=== PATIENT | male | born 1975 | race Caucasian/White ===

== ENCOUNTER → 2016-06-06 | Outpatient (REF) | payer MEDICARE, MEDICAID ==
[~2016-06-06] MED LIST: AMOX500C PO; CALC250T PO; FOLI1TAB2 PO; INSUH10VL SC; INSULANT SC; LEXA1TAB2 PO; LISI-542 PO; METO100T PO; MYFO360T PO; NEXI40CA PO; PRED5TA PO; TACR0.5C3 PO; VITA10002 PO; VITA500046 PO; VITMTA PO; [UNRECOGNIZED DRUG - CODE] PO
[2016-06-06 14:05] LABS: ALBUMIN 3.8 GM/DL (3.2-5.2); ALBUMIN/GLOBULIN RATIO 1.46 (1.00-1.93); BILIRUBIN,DIRECT 0.2 MG/DL (0.0-0.2); BILIRUBIN,TOTAL 0.8 MG/DL (0.2-1.0); TOTAL PROTEIN 6.4 GM/DL (6.4-8.2)
== END ==
LOC: M LAB REF 13:22
PROVIDERS: ATTEND Internal Medicine Nephrology
DX: Z94.0 Kidney transplant status (principal)

== ENCOUNTER → 2016-11-22 | Outpatient (CLI) | payer MEDICARE, MEDICAID ==
[~2016-11-22] MED LIST changes: -FOLI1TAB2 PO; +FOLI1TAB4 PO; -METO100T PO; +METO100T5 PO
[2016-11-22 12:42] LABS: BASO % 0.6 % (0.0-1.0); EOS # 0.2 K/mm3 (0.0-0.50); EOS % 2.9 % (0.0-3.0); LARGE UNSTAINED CELL # 0.2 K/mm3 (0.0-0.4); LARGE UNSTAINED CELL % 2.8 % (0.0-4.0); LYMPH # 1.7 K/mm3 (1.5-4.5); LYMPH % 27.7 % (24.0-44.0); MEAN CORPUSCULAR HEMOGLOBIN 32.7 pg (27.0-33.0); MEAN CORPUSCULAR HGB CONC 35.9 g/dl (32.0-36.5); MEAN CORPUSCULAR VOLUME 91.1 fl (80.0-96.0); MONO # 0.4 K/mm3 (0.0-0.8); MONO % 6.3 % (0.0-5.0); NEUTROPHILS # 3.6 K/mm3 (1.8-7.7); NEUTROPHILS % 59.7 % (36.0-66.0); PLATELET COUNT, AUTOMATED 135 k/mm3 (150-450); RED CELL DISTRIBUTION WIDTH 14.6 % (11.5-14.5)
[2016-11-22 13:27] LABS: ALBUMIN 4.1 GM/DL (3.2-5.2); ALBUMIN/GLOBULIN RATIO 1.52 (1.00-1.93); ALKALINE PHOSPHATASE 41 U/L (45-117); ALT/SGPT 28 U/L (12-78); ANION GAP 9 MEQ/L (8-16); AST/SGOT 15 U/L (15-37); BILIRUBIN,DIRECT 0.2 MG/DL (0.0-0.2); BILIRUBIN,TOTAL 0.9 MG/DL (0.2-1.0); BLOOD UREA NITROGEN 23 MG/DL (7-18); CALCIUM LEVEL 9.8 MG/DL (8.5-10.1); CARBON DIOXIDE LEVEL 27 MEQ/L (21-32); CHLORIDE LEVEL 103 MEQ/L (98-107); CREATININE FOR GFR 1.17 MG/DL (0.70-1.30); GLOMERULAR FILTRATION RATE > 60.0 (>60); GLUCOSE, FASTING 82 MG/DL (70-105); MAGNESIUM LEVEL 1.8 MG/DL (1.8-2.4); PHOSPHORUS LEVEL 3.1 MG/DL (2.5-4.9); POTASSIUM SERUM 4.2 MEQ/L (3.5-5.1); SODIUM LEVEL 139 MEQ/L (136-145); TOTAL PROTEIN 6.8 GM/DL (6.4-8.2)
== END ==
LOC: M WUC 10:09
PROVIDERS: ATTEND Internal Medicine Nephrology
DX: Z94.0 Kidney transplant status (principal); D84.9 Immunodeficiency, unspecified; N18.5 Chronic kidney disease, stage 5; Z79.899 Other long term (current) drug therapy

== ENCOUNTER → 2016-12-06 | Outpatient (REF) | payer MEDICARE, MEDICAID ==
[2016-12-06 14:22] LABS: ALBUMIN 3.9 GM/DL (3.2-5.2); ALBUMIN/GLOBULIN RATIO 1.56 (1.00-1.93); BILIRUBIN,DIRECT 0.2 MG/DL (0.0-0.2); BILIRUBIN,TOTAL 0.9 MG/DL (0.2-1.0); TOTAL PROTEIN 6.4 GM/DL (6.4-8.2)
== END ==
LOC: M LAB REF 12:56
PROVIDERS: ATTEND Internal Medicine Nephrology
DX: Z94.0 Kidney transplant status (principal); E78.2 Mixed hyperlipidemia

== ENCOUNTER → 2017-03-07 | Outpatient (REF) | payer MEDICARE, MEDICAID ==
[2017-03-07 13:43] LABS: ALBUMIN 3.6 GM/DL (3.2-5.2); ALBUMIN/GLOBULIN RATIO 1.24 (1.00-1.93); BILIRUBIN,DIRECT 0.2 MG/DL (0.0-0.2); BILIRUBIN,TOTAL 0.9 MG/DL (0.2-1.0); TOTAL PROTEIN 6.5 GM/DL (6.4-8.2)
== END ==
LOC: M LAB REF 13:10
PROVIDERS: ATTEND Internal Medicine Nephrology
DX: Z94.0 Kidney transplant status (principal)

== ENCOUNTER → 2017-06-06 | Outpatient (REF) | payer MEDICARE, MEDICAID ==
[2017-06-06 14:11] LABS: ALBUMIN 3.7 GM/DL (3.2-5.2); ALBUMIN/GLOBULIN RATIO 1.37 (1.00-1.93); ALKALINE PHOSPHATASE 41 U/L (45-117); ALT/SGPT 29 U/L (12-78); AST/SGOT 20 U/L (7-37); BILIRUBIN,DIRECT 0.2 MG/DL (0.0-0.2); BILIRUBIN,TOTAL 0.7 MG/DL (0.2-1.0); CHOLESTEROL LEVEL 162 MG/DL (<200); CHOLESTEROL RISK RATIO 4.764 (<5); HDL CHOLESTEROL 34 MG/DL (>40); LDL CHOLESTEROL 50.6 MG/DL (<100); NON-HDL-C 128 MG/DL; TOTAL PROTEIN 6.4 GM/DL (6.4-8.2); TRIGLYCERIDES LEVEL 387 MG/DL (<150)
[2017-06-08 08:06] LABS: FK 506 (TACROLIMUS) LABCORP 6.4 ng/mL (2.0-20.0)
== END ==
LOC: M LAB REF 13:38
DX: Z94.0 Kidney transplant status (principal); E78.2 Mixed hyperlipidemia
CPT/HCPCS: 80076

== ENCOUNTER → 2017-09-05 | Outpatient (REF) | payer MEDICARE, MEDICAID ==
[2017-09-05 14:23] LABS: ALBUMIN 3.9 GM/DL (3.2-5.2); ALBUMIN/GLOBULIN RATIO 1.56 (1.00-1.93); ALKALINE PHOSPHATASE 40 U/L (45-117); ALT/SGPT 29 U/L (12-78); AST/SGOT 14 U/L (7-37); BILIRUBIN,DIRECT 0.2 MG/DL (0.0-0.2); BILIRUBIN,TOTAL 0.7 MG/DL (0.2-1.0); TOTAL PROTEIN 6.4 GM/DL (6.4-8.2)
[2017-09-07 09:18] LABS: FK 506 (TACROLIMUS) LABCORP 4.8 ng/mL (2.0-20.0)
== END ==
LOC: M LAB REF 13:23
DX: Z94.0 Kidney transplant status (principal)
CPT/HCPCS: 80076

== ENCOUNTER → 2017-12-10 | Outpatient (REF) | payer MEDICARE, MEDICAID ==
[2017-12-13 00:06] LABS: FK 506 (TACROLIMUS) LABCORP 3.5 ng/mL (2.0-20.0)
== END ==
LOC: M LAB REF 13:18
DX: Z94.0 Kidney transplant status (principal)
CPT/HCPCS: 80197

== ENCOUNTER → 2018-04-21 | Outpatient (REF) | payer MEDICARE, MEDICAID ==
[~2018-04-21] MED LIST changes: +FOLI1TAB11 PO; -FOLI1TAB4 PO
[2018-04-21 14:30] LABS: ALBUMIN 3.7 GM/DL (3.2-5.2); ALT/SGPT 28 U/L (12-78); BILIRUBIN,DIRECT 0.1 MG/DL (0.0-0.2); BILIRUBIN,TOTAL 0.7 MG/DL (0.2-1.0); CHOLESTEROL LEVEL 202 MG/DL (<200); CHOLESTEROL RISK RATIO 6.121 (<5); HDL CHOLESTEROL 33 MG/DL (>40); NON-HDL-C 169 MG/DL; TOTAL PROTEIN 6.4 GM/DL (6.4-8.2); TRIGLYCERIDES LEVEL 457 MG/DL (<150)
== END ==
LOC: M LAB REF 13:23
PROVIDERS: ATTEND Internal Medicine Nephrology
DX: Z48.22 Encounter for aftercare following kidney transplant (principal); Z94.0 Kidney transplant status; E78.2 Mixed hyperlipidemia

== ENCOUNTER → 2018-05-12 | Outpatient (CLI) | payer MEDICARE, MEDICAID ==
[2018-05-12 12:44] LABS: BASO % 0.3 % (0.0-1.0); EOS # 0.2 10^3/uL (0.0-0.50); EOS % 3.8 % (0.0-3.0); HEMATOCRIT 40.6 % (42.0-52.0); HEMOGLOBIN 13.5 g/dl (13.5-17.5); LYMPH # 1.6 10^3/uL (1.5-4.5); LYMPH % 25.4 % (24.0-44.0); MEAN CORPUSCULAR HEMOGLOBIN 31.4 pg (27.0-33.0); MEAN CORPUSCULAR HGB CONC 33.3 g/dl (32.0-36.5); MEAN CORPUSCULAR VOLUME 94.4 fl (80.0-96.0); MONO # 0.6 10^3/uL (0.0-0.8); MONO % 8.7 % (0.0-5.0); NEUTROPHILS # 3.8 10^3/uL (1.8-7.7); NEUTROPHILS % 60.7 % (36.0-66.0); PLATELET COUNT, AUTOMATED 115 10^3/uL (150-450); WHITE BLOOD COUNT 6.3 10^3/uL (4.0-10.0)
[2018-05-12 12:45] LABS: HEMATOCRIT 40.6 % (42.0-52.0)
[2018-05-12 13:26] LABS: ALBUMIN 3.6 GM/DL (3.2-5.2); BILIRUBIN,TOTAL 0.7 MG/DL (0.2-1.0); CALCIUM LEVEL 9.4 MG/DL (8.5-10.1); CREATININE FOR GFR 1.5 MG/DL (0.70-1.30); GLOMERULAR FILTRATION RATE 54.9 (>60); MAGNESIUM LEVEL 1.9 MG/DL (1.8-2.4); PERCENT SATURATION 33.7 % (19.7-50.0); PHOSPHORUS LEVEL 3.1 MG/DL (2.5-4.9); POTASSIUM SERUM 4.8 MEQ/L (3.5-5.1); TOTAL 25(OH) VITAMIN D 34.2 NG/ML (30.0-100.0); TOTAL PROTEIN 6.5 GM/DL (6.4-8.2)
[2018-05-12 15:54] LABS: HEMOGLOBIN A1c 8.1 %
== END ==
LOC: M WUC 09:12
PROVIDERS: ATTEND Physician Assistant Surgical
DX: K91.2 Postsurgical malabsorption, not elsewhere classified (principal); Z98.84 Bariatric surgery status; E55.9 Vitamin D deficiency, unspecified

== ENCOUNTER → 2018-07-22 | Outpatient (REF) | payer MEDICARE, MEDICAID ==
[2018-07-22 14:13] LABS: ALBUMIN 3.8 GM/DL (3.2-5.2); BILIRUBIN,DIRECT 0.1 MG/DL (0.0-0.2); BILIRUBIN,TOTAL 0.7 MG/DL (0.2-1.0); TOTAL PROTEIN 6.4 GM/DL (6.4-8.2)
== END ==
LOC: M LAB REF 13:04
PROVIDERS: ATTEND Internal Medicine Nephrology
DX: Z94.0 Kidney transplant status (principal)
CPT/HCPCS: 80076; 80197; G0480

== ENCOUNTER → 2018-10-22 | Outpatient (REF) | payer MEDICARE, MEDICAID ==
[~2018-10-22] MED LIST changes: +CYAN100049 PO; -VITA10002 PO
[2018-10-22 13:59] LABS: ALBUMIN 3.8 GM/DL (3.2-5.2); ALT/SGPT 28 U/L (12-78); BILIRUBIN,DIRECT 0.2 MG/DL (0.0-0.2); BILIRUBIN,TOTAL 0.8 MG/DL (0.2-1.0); CHOLESTEROL LEVEL 179 MG/DL (<200); CHOLESTEROL RISK RATIO 4.972 (<5); HDL CHOLESTEROL 36 MG/DL (>40); NON-HDL-C 143 MG/DL; TOTAL PROTEIN 6.7 GM/DL (6.4-8.2); TRIGLYCERIDES LEVEL 521 MG/DL (<150)
== END ==
LOC: M LAB REF 13:23
PROVIDERS: ATTEND Internal Medicine Nephrology
DX: Z94.0 Kidney transplant status (principal); E78.2 Mixed hyperlipidemia

== ENCOUNTER → 2018-11-06 | Outpatient (CLI) | payer MEDICARE, MEDICAID ==
--- NOTE | 2018-11-06 10:52 | REP ---
PA and lateral chest: Comparison is 12/20/2015. The lung tao are clear. The cardiac size is normal. The ale, mediastinum, and skeletal structures are unremarkable. Surgical clips are again identified over the right lung inferiorly, unchanged. Impression: Negative PA and lateral chest. There is no interval change. Electronically Signed by Edwin Williamson MD 11/06/2018 10:44 A
== END ==
LOC: M SMT 10:19
PROVIDERS: ATTEND Nurse Practitioner Family
DX: R05 Cough (principal); R50.9 Fever, unspecified; Z94.0 Kidney transplant status

== ENCOUNTER → 2019-01-27 | Outpatient (REF) | payer MEDICARE, MEDICAID ==
[2019-01-27 14:21] LABS: ALBUMIN 3.6 GM/DL (3.2-5.2); ALT/SGPT 26 U/L (12-78); BILIRUBIN,DIRECT 0.1 MG/DL (0.0-0.2); BILIRUBIN,TOTAL 0.7 MG/DL (0.2-1.0); CHOLESTEROL LEVEL 176 MG/DL (<200); CHOLESTEROL RISK RATIO 4.631 (<5); HDL CHOLESTEROL 38 MG/DL (>40); NON-HDL-C 138 MG/DL; TOTAL PROTEIN 6.3 GM/DL (6.4-8.2); TRIGLYCERIDES LEVEL 460 MG/DL (<150)
== END ==
LOC: M LAB REF 14:03
PROVIDERS: ATTEND Internal Medicine Nephrology
DX: Z94.0 Kidney transplant status (principal); E78.2 Mixed hyperlipidemia

== ENCOUNTER → 2019-04-29 | Outpatient (REF) | payer MEDICARE, MEDICAID | LOC: M LAB REF 12:54 | PROVIDERS: ATTEND Nurse Practitioner Family | DX: Z94.0 Kidney transplant status (principal) ==

== ENCOUNTER → 2019-05-27 | Outpatient (REF) | payer MEDICARE, MEDICAID ==
[2019-05-27 14:12] LABS: ALBUMIN 3.5 GM/DL (3.2-5.2); ALT/SGPT 23 U/L (12-78); BILIRUBIN,DIRECT 0.1 MG/DL (0.0-0.2); BILIRUBIN,TOTAL 0.7 MG/DL (0.2-1.0); COMPLEMENT C3 123 MG/DL (90-180); COMPLEMENT C4 29 MG/DL (10-40); TOTAL PROTEIN 6.5 GM/DL (6.4-8.2)
[2019-05-28 08:10] LABS: HEPATITIS B SURFACE ANTIBODY NEGATIVE (POSITIVE)
[2019-05-28 08:21] LABS: HEPATITIS B SURFACE ANTIGEN NEGATIVE (NEGATIVE)
[2019-05-28 08:48] LABS: HEPATITIS C VIRUS ABY INDEX < 0.0 INDEX (<0.8)
[2019-05-28 08:49] LABS: HEPATITIS B CORE ANTIBODY IGM NEGATIVE (NEGATIVE)
== END ==
LOC: M LAB REF 13:28
PROVIDERS: ATTEND Nurse Practitioner Family
DX: Z94.0 Kidney transplant status (principal)

== ENCOUNTER → 2019-08-27 | Outpatient (REF) | payer MEDICARE, MEDICAID | LOC: M LAB REF 17:55 | PROVIDERS: ATTEND Nurse Practitioner Family | DX: Z94.0 Kidney transplant status (principal) ==

== ENCOUNTER → 2019-09-03 | Outpatient (REF) | payer MEDICARE, MEDICAID ==
[2019-09-03 17:11] LABS: URINE TOTAL PROTEIN 193.7 MG/DL (0-12)
[2019-09-03 20:23] LABS: TOTAL PROTEIN 24 HOUR URINE 5772.2 MG/24HR (50-150)
== END ==
LOC: M LAB REF 16:28
PROVIDERS: ATTEND Nurse Practitioner Family
DX: Z94.0 Kidney transplant status (principal); R80.9 Proteinuria, unspecified

== ENCOUNTER → 2019-11-30 | Outpatient (REF) | payer MEDICARE, MEDICAID | LOC: M LAB REF 17:03 | PROVIDERS: ATTEND Nurse Practitioner Family | DX: B39.9 Histoplasmosis, unspecified (principal); Z94.0 Kidney transplant status; Z79.899 Other long term (current) drug therapy | CPT/HCPCS: 80197; G0480 ==

== ENCOUNTER → 2020-03-03 | Outpatient (REF) | payer MEDICARE, MEDICAID | LOC: M LAB REF 16:50 | PROVIDERS: ATTEND Nurse Practitioner Family | DX: Z94.0 Kidney transplant status (principal) ==

== ENCOUNTER → 2020-06-01 | Outpatient (REF) | payer MEDICARE, MEDICAID ==
[~2020-06-01] MED LIST changes: -LISI-542 PO; +LISI-898 PO
[2020-06-01 18:39] LABS: FREE T3 2.6 PG/ML (2.2-4.0); FREE T4 0.68 NG/DL (0.76-1.46); THYROID STIMULATING HORMONE 1.14 uIU/ML (0.358-3.740)
== END ==
LOC: M LAB REF 16:47
PROVIDERS: ATTEND Nurse Practitioner Family
DX: R53.83 Other fatigue (principal); Z94.0 Kidney transplant status

== ENCOUNTER → 2020-09-01 | Outpatient (REF) | payer MEDICARE, MEDICAID | LOC: M LAB REF 16:52 | PROVIDERS: ATTEND Nurse Practitioner Family | DX: Z94.0 Kidney transplant status (principal) ==

== ENCOUNTER → 2020-09-05 | Outpatient (REF) | payer MEDICARE, MEDICAID ==
[2020-09-05 18:13] LABS: URINE TOTAL PROTEIN 184.5 MG/DL (0-12)
[2020-09-05 18:56] LABS: TOTAL PROTEIN 24 HOUR URINE 5147.5 MG/24HR (50-150)
== END ==
LOC: M LAB REF 17:24
PROVIDERS: ATTEND Nurse Practitioner Family
DX: R80.9 Proteinuria, unspecified (principal); Z94.0 Kidney transplant status

== ENCOUNTER → 2020-09-15 | Outpatient (CLI) | payer MEDICARE, MEDICAID ==
--- NOTE | 2020-09-15 10:25 | REP ---
INDICATION: KIDNEY TRANSPLANT STATUS COMPARISON: None. TECHNIQUE: Real time B-mode and Doppler ultrasound examination using curved array transducer. FINDINGS: Transplant kidney in the left lower quadrant measures 12.6 x 9.2 x 6.1 cm (370 cc volume). Kidney is relatively normal in reniform shape and echotexture without hydronephrosis, nephrolithiasis, cystic or renal mass lesion. No perinephric fluid collection is identified. Doppler interrogation of the associated iliac vessels, area of anastomosis, and renal vessels demonstrate normal velocities and wave patterns including normal renal artery to iliac artery ratios. (Referred to worksheet for complete details) Intrarenal resistive indices: 0.71-0.83 Acceleration times: 0.036-0.044 Iliac artery (pre/post) PSV: 123/105 cm/sec Main Renal artery (anastomosis): 144 cm/sec MRA:EIA ration: 1.05 : 1 IMPRESSION: Normal examination of the left lower quadrant transplant kidney.. <Electronically signed by Sanchez Nieves > 09/15/20 1024
== END ==
LOC: M RAD 08:53
PROVIDERS: ATTEND Nurse Practitioner Family
DX: Z94.0 Kidney transplant status (principal)

== ENCOUNTER → 2020-09-15 | Outpatient (REF) | payer MEDICARE, MEDICAID ==
[2020-09-15 17:32] LABS: PERCENT SATURATION 20.4 % (19.7-50.0)
== END ==
LOC: M LAB REF 16:49
PROVIDERS: ATTEND Nurse Practitioner Family
DX: D64.9 Anemia, unspecified (principal)

== ENCOUNTER → 2020-10-06 | Outpatient (REF) | payer MEDICARE, MEDICAID | LOC: M LAB REF 18:12 | PROVIDERS: ATTEND Nurse Practitioner Family | DX: E83.42 Hypomagnesemia (principal) ==

== ENCOUNTER → 2020-11-14 | Outpatient (REF) | payer MEDICARE, MEDICAID ==
[2020-11-14 13:35] LABS: IRON (FE) 71 UG/DL (65-175); PERCENT SATURATION 20.7 % (19.7-50.0); TOTAL IRON BINDING CAPACITY 343 UG/DL (250-450)
[2020-11-14 13:38] LABS: VITAMIN B12 LEVEL 1310 PG/ML
[2020-11-14 13:39] LABS: FOLATE > 24.0 NG/ML
== END ==
LOC: M LAB REF 12:02
PROVIDERS: ATTEND Nurse Practitioner Family
DX: Z94.0 Kidney transplant status (principal); E83.42 Hypomagnesemia; D50.9 Iron deficiency anemia, unspecified

== ENCOUNTER → 2020-12-14 | Outpatient (REF) | payer MEDICARE, MEDICAID | LOC: M LAB REF 13:54 | PROVIDERS: ATTEND Nurse Practitioner Family | DX: Z94.0 Kidney transplant status (principal); N18.31 Chronic kidney disease, stage 3a; E83.42 Hypomagnesemia ==

== ENCOUNTER 2021-01-03 11:07 | Outpatient (CLI) | payer MEDICARE, MEDICAID ==
[~2021-01-03] VITALS: Ht 180.3 cm; Wt 102.0 kg
[~2021-01-03 11:07] MED LIST changes: +BELATACEPT IV ONE; +NS IV ONE
[2021-01-03 11:10] VITALS: BP 128/77
[2021-01-03] MEDS ORDERED: PRED5PAK PO (11:36)
[2021-01-03] MEDS ORDERED: PRAV10TA3 PO (11:36)
[2021-01-03 13:00] VITALS: BP 140/84
== END 2021-01-03 13:10 | disposition home or self-care (01) ==
LOC: M INFU 11:07
PROVIDERS: ATTEND Internal Medicine Nephrology
DX: Z94.0 Kidney transplant status (principal)
CPT/HCPCS: 96365; J0485

== ENCOUNTER → 2021-01-12 | Outpatient (CLI) | payer MEDICARE, MEDICAID ==
[~2021-01-12] MED LIST changes: -BELATACEPT IV ONE; -NS IV ONE; +PRAV10TA3 PO; +PRED5PAK PO
== END ==
LOC: M WUC 10:50
PROVIDERS: ATTEND Nurse Practitioner Family
DX: N18.5 Chronic kidney disease, stage 5 (principal); Z94.0 Kidney transplant status; D84.9 Immunodeficiency, unspecified; Z79.899 Other long term (current) drug therapy

== ENCOUNTER 2021-01-31 11:03 | Outpatient (CLI) | payer MEDICARE, MEDICAID ==
[~2021-01-31] VITALS: Ht 180.3 cm; Wt 102.0 kg
[~2021-01-31 11:03] MED LIST changes: +BELATACEPT IV ONE; +NS IV ONE
[2021-01-31 11:13] VITALS: BP 133/75
[2021-01-31 12:28] VITALS: BP 134/83
== END 2021-01-31 12:30 | disposition home or self-care (01) ==
LOC: M INFU 11:03
PROVIDERS: ATTEND Internal Medicine Nephrology
DX: Z94.0 Kidney transplant status (principal)
CPT/HCPCS: 96365; J0485

== ENCOUNTER 2021-02-14 10:58 | Outpatient (CLI) | payer MEDICARE, MEDICAID ==
[~2021-02-14] VITALS: Ht 180.3 cm; Wt 102.0 kg
[~2021-02-14 10:58] MED LIST changes: -ADVA115A INH; -ALBU8.5H INH; -AMLO1TAB24 PO; -FEBU80TA PO; -IRBE300T7 PO; -OZEM2INJ SC; -PRAV20TA2 PO; -SPORCAP PO; -TACR1CAP3 PO; -VITA1CAP25 PO
[2021-02-14] MEDS ORDERED: BELATACEPT IV ONE (11:00)
[2021-02-14] MEDS ORDERED: NS IV ONE (11:00)
[2021-02-14 11:05] VITALS: BP 130/78
[2021-02-14 12:27] VITALS: BP 135/80
== END 2021-02-14 12:40 | disposition home or self-care (01) ==
LOC: M INFU 10:58
PROVIDERS: ATTEND Internal Medicine Nephrology
DX: Z94.0 Kidney transplant status (principal); N18.31 Chronic kidney disease, stage 3a; E83.42 Hypomagnesemia
CPT/HCPCS: 80197; 83735; 96365; J0485

== ENCOUNTER → 2021-02-14 | Outpatient (REF) | payer MEDICARE, MEDICAID ==
[~2021-02-14] MED LIST changes: +ADVA115A INH; +ALBU8.5H INH; +AMLO1TAB24 PO; -BELATACEPT IV ONE; +FEBU80TA PO; +IRBE300T7 PO; -LISI-898 PO; +LISI5TAB11 PO; -NS IV ONE; +OZEM2INJ SC; +PRAV20TA2 PO; +SPORCAP PO; +TACR1CAP3 PO; +VITA1CAP25 PO
== END ==
LOC: M LAB REF 12:40
PROVIDERS: ATTEND Nurse Practitioner Family
DX: Z94.0 Kidney transplant status (principal); N18.31 Chronic kidney disease, stage 3a; E83.42 Hypomagnesemia

== ENCOUNTER 2021-02-28 10:44 | Outpatient (CLI) | payer MEDICARE, MEDICAID ==
[~2021-02-28] VITALS: Ht 177.8 cm; Wt 102.0 kg
[~2021-02-28 10:44] MED LIST changes: +LISI-898 PO; -LISI5TAB11 PO
[2021-02-28] MEDS ORDERED: NS IV ONE (11:00)
[2021-02-28] MEDS ORDERED: BELATACEPT IV ONE (11:00)
[2021-02-28 11:14] VITALS: BP 130/81
[2021-02-28 12:19] VITALS: BP 130/80
== END 2021-02-28 12:25 | disposition home or self-care (01) ==
LOC: M INFU 10:44
PROVIDERS: ATTEND Internal Medicine Nephrology
DX: Z94.0 Kidney transplant status (principal)
CPT/HCPCS: 96365; J0485

== ENCOUNTER 2021-03-14 11:19 | Outpatient (CLI) | payer MEDICARE, MEDICAID ==
[~2021-03-14] VITALS: Ht 177.8 cm; Wt 102.0 kg
[2021-03-14 11:30] VITALS: BP 133/80
[2021-03-14] MEDS ORDERED: NS IV ONE (11:30)
[2021-03-14] MEDS ORDERED: BELATACEPT IV ONE (11:30)
[2021-03-14 12:45] VITALS: BP 161/95
== END 2021-03-14 13:00 | disposition home or self-care (01) ==
LOC: M INFU 11:19
PROVIDERS: ATTEND Internal Medicine Nephrology
DX: Z94.0 Kidney transplant status (principal)
CPT/HCPCS: 96365; J0485

== ENCOUNTER 2021-04-02 11:15 | Outpatient (CLI) | payer MEDICARE, MEDICAID ==
[~2021-04-02] VITALS: Ht 177.8 cm; Wt 102.0 kg
[~2021-04-02 11:15] MED LIST changes: +BELATACEPT IV ONE; -LISI-898 PO; +LISI5TAB11 PO; +NS IV ONE
[2021-04-02 11:35] VITALS: BP 125/75
[2021-04-02 12:00] VITALS: BP 125/75
[2021-04-02 13:01] VITALS: BP 139/78
== END 2021-04-02 12:40 ==
LOC: M INFU 11:15
PROVIDERS: ATTEND Internal Medicine Nephrology
DX: Z94.0 Kidney transplant status (principal)
CPT/HCPCS: 96365; J0485

== ENCOUNTER 2021-04-20 11:24 | Emergency (ER) | payer MEDICARE, MEDICAID ==
[~2021-04-20] VITALS: Ht 180.3 cm; Wt 107.1 kg
[~2021-04-20 11:24] MED LIST changes: -ACETAMINOPHEN TAB 650MG DOSE (2X325MG) PO PRN; -ADVA115A INH; -ALBU8.5H INH; -ALBUTEROL 90 MCG/ACT 8GM HFA INHALER INH PRN; -ALBUTEROL SULFATE 2.5 MG/0.5 ML INH NEB SOLN INH PRN; -AMLO1TAB24 PO; -EPINEPHrine INJ 1 MG/ML 1ML AMP IM PRN; -FEBU80TA PO; -IRBE300T7 PO; -NS 1,000 ML IV SCH; -OZEM2INJ SC; -PRAV20TA2 PO; -SOTROVIMAB 500 MG in NS 100 ML IV ONE; -SPORCAP PO; -TACR1CAP3 PO; -VITA1CAP25 PO; -diphenhydrAMINE 50MG/ML VIAL (J1200) IV PRN; -methylPREDNISolone 125MG 2ML VIAL IV PRN
[2021-04-20 13:06] LABS: RSV AMPLIFICATION NEGATIVE (NEGATIVE)
[2021-04-20 15:27] LABS: BASO % 0.2 % (0.0-1.0); EOS # 0.1 10^3/uL (0.0-0.5); EOS % 1.3 % (0.0-3.0); HEMATOCRIT 35.4 % (42.0-52.0); HEMOGLOBIN 12.1 g/dl (13.5-17.5); LYMPH % 21.2 % (24.0-44.0); MEAN CORPUSCULAR HEMOGLOBIN 31.3 pg (27.0-33.0); MEAN CORPUSCULAR HGB CONC 34.2 g/dl (32.0-36.5); MEAN CORPUSCULAR VOLUME 91.7 fl (80.0-96.0); MONO # 0.4 10^3/uL (0.0-0.8); MONO % 8.8 % (2.0-8.0); NEUTROPHILS % 66.5 % (36.0-66.0); PLATELET COUNT, AUTOMATED 115 10^3/uL (150-450); RED BLOOD COUNT 3.86 10^6/uL (4.30-6.10); WHITE BLOOD COUNT 4.6 10^3/uL (4.0-10.0)
[2021-04-20 16:02] LABS: BILIRUBIN,DIRECT 0.1 MG/DL (0.0-0.2); BILIRUBIN,TOTAL 0.5 MG/DL (0.2-1.0); CALCIUM LEVEL 8.8 MG/DL (8.5-10.1); CREATININE FOR GFR 1.63 MG/DL (0.70-1.30); FREE T4 0.78 NG/DL (0.76-1.46); GLOMERULAR FILTRATION RATE 49.2 (>60); POTASSIUM SERUM 4.8 MEQ/L (3.5-5.1); THYROID STIMULATING HORMONE 0.961 uIU/ML (0.358-3.740); TOTAL PROTEIN 5.8 GM/DL (6.4-8.2)
[2021-04-20] MEDS ORDERED: PRAV20TA2 PO (16:50)
[2021-04-20] MEDS ORDERED: AMLO1TAB24 PO (16:50)
[2021-04-20] MEDS ORDERED: ADVA115A INH (16:50)
[2021-04-20] MEDS ORDERED: SPORCAP PO (16:50)
[2021-04-20] MEDS ORDERED: FEBU80TA PO (16:50)
[2021-04-20] MEDS ORDERED: TACR1CAP3 PO (16:50)
[2021-04-20] MEDS ORDERED: ALBU8.5H INH (16:50)
[2021-04-20] MEDS ORDERED: IRBE300T7 PO (16:50)
[2021-04-20] MEDS ORDERED: VITA1CAP25 PO (16:50)
[2021-04-20] MEDS ORDERED: OZEM2INJ SC (16:50)
[2021-04-20 17:00] VITALS: BP 157/93
== END 2021-04-20 18:22 | disposition home or self-care (01) ==
LOC: M ED 11:24
DX: U07.1 COVID-19 (principal); Z94.0 Kidney transplant status; E11.9 Type 2 diabetes mellitus without complications; I10 Essential (primary) hypertension; B39.9 Histoplasmosis, unspecified; Z79.899 Other long term (current) drug therapy

== ENCOUNTER → 2021-04-20 | Outpatient (CLI) | payer MEDICARE, MEDICAID ==
[~2021-04-20] MED LIST changes: +ACETAMINOPHEN TAB 650MG DOSE (2X325MG) PO PRN; +ADVA115A INH; +ALBU8.5H INH; +ALBUTEROL 90 MCG/ACT 8GM HFA INHALER INH PRN; +ALBUTEROL SULFATE 2.5 MG/0.5 ML INH NEB SOLN INH PRN; +AMLO1TAB24 PO; -BELATACEPT IV ONE; +EPINEPHrine INJ 1 MG/ML 1ML AMP IM PRN; +FEBU80TA PO; +IRBE300T7 PO; +NS 1,000 ML IV SCH; -NS IV ONE; +OZEM2INJ SC; +PRAV20TA2 PO; +SOTROVIMAB 500 MG in NS 100 ML IV ONE; +SPORCAP PO; +TACR1CAP3 PO; +VITA1CAP25 PO; +diphenhydrAMINE 50MG/ML VIAL (J1200) IV PRN; +methylPREDNISolone 125MG 2ML VIAL IV PRN
[2021-04-20 18:30] VITALS: BP 149/96
[2021-04-20 19:00] VITALS: BP 136/89
[2021-04-20 20:15] VITALS: BP 139/90
== END ==
LOC: M OPCLI4 17:15
PROVIDERS: ATTEND Internal Medicine
DX: U07.1 COVID-19 (principal)

== ENCOUNTER 2021-05-14 08:38 | Outpatient (CLI) | payer MEDICARE, MEDICAID ==
[~2021-05-14] VITALS: Ht 180.3 cm; Wt 107.1 kg
[~2021-05-14 08:38] MED LIST changes: +ADVA115A INH; +ALBU8.5H INH; +AMLO1TAB24 PO; +BELATACEPT IV ONE; +FEBU80TA PO; +IRBE300T7 PO; +NS IV ONE; +OZEM2INJ SC; +PRAV20TA2 PO; +SPORCAP PO; +TACR1CAP3 PO; +VITA1CAP25 PO
[2021-05-14 08:45] VITALS: BP 172/102
[2021-05-14 09:33] VITALS: BP 170/98
[2021-05-14 10:38] VITALS: BP 160/91
== END 2021-05-14 10:40 | disposition home or self-care (01) ==
LOC: M INFU 08:38
PROVIDERS: ATTEND Internal Medicine Nephrology
DX: Z94.0 Kidney transplant status (principal)
CPT/HCPCS: 96365; J0485

== ENCOUNTER 2021-06-11 10:57 | Outpatient (CLI) | payer MEDICARE, MEDICAID ==
[~2021-06-11] VITALS: Ht 180.3 cm; Wt 102.3 kg
[~2021-06-11 10:57] MED LIST changes: -BELATACEPT IV ONE; -NS IV ONE
[2021-06-11] MEDS ORDERED: BELATACEPT IV ONE (11:00)
[2021-06-11] MEDS ORDERED: NS IV ONE (11:00)
[2021-06-11 11:16] VITALS: BP 147/89
[2021-06-11 12:20] VITALS: BP 143/78
== END 2021-06-11 12:20 | disposition home or self-care (01) ==
LOC: M INFU 10:57
PROVIDERS: ATTEND Internal Medicine Nephrology
DX: Z94.0 Kidney transplant status (principal)
CPT/HCPCS: 96365; J0485

== ENCOUNTER → 2021-07-06 | Outpatient (REF) | payer MEDICARE, MEDICAID | LOC: M LAB REF 16:39 | PROVIDERS: ATTEND Nurse Practitioner Family | DX: Z94.0 Kidney transplant status (principal) ==

== ENCOUNTER 2021-07-09 10:55 | Outpatient (CLI) | payer MEDICARE, MEDICAID ==
[~2021-07-09] VITALS: Ht 180.3 cm; Wt 102.3 kg
[2021-07-09 11:00] VITALS: BP 135/80
[2021-07-09] MEDS ORDERED: BELATACEPT IV ONE (11:00)
[2021-07-09] MEDS ORDERED: NS IV ONE (11:00)
[2021-07-09 12:11] VITALS: BP 133/86
== END 2021-07-09 12:10 | disposition home or self-care (01) ==
LOC: M INFU 10:55
PROVIDERS: ATTEND Internal Medicine Nephrology
DX: Z94.0 Kidney transplant status (principal)
CPT/HCPCS: 96365; J0485

== ENCOUNTER 2021-08-06 11:03 | Outpatient (CLI) | payer MEDICARE, MEDICAID ==
[~2021-08-06] VITALS: Ht 180.3 cm; Wt 102.7 kg
[~2021-08-06 11:03] MED LIST changes: +BELATACEPT IV ONE; +NS IV ONE
[2021-08-06 11:15] VITALS: BP 159/90
[2021-08-06 12:47] VITALS: BP 142/85
== END 2021-08-06 12:45 | disposition home or self-care (01) ==
LOC: M INFU 11:03
PROVIDERS: ATTEND Internal Medicine Nephrology
DX: Z94.0 Kidney transplant status (principal)
CPT/HCPCS: 96365; J0485

== ENCOUNTER → 2021-08-10 | Outpatient (REF) | payer MEDICARE, MEDICAID ==
[~2021-08-10] MED LIST changes: -BELATACEPT IV ONE; -NS IV ONE
[2021-08-10 18:53] LABS: FREE T4 0.77 NG/DL (0.76-1.46); THYROID STIMULATING HORMONE 0.921 uIU/ML (0.358-3.740)
== END ==
LOC: M LAB REF 16:46
PROVIDERS: ATTEND Nurse Practitioner Family
DX: Z94.0 Kidney transplant status (principal); R53.83 Other fatigue

== ENCOUNTER 2021-09-03 11:10 | Outpatient (CLI) | payer MEDICARE, MEDICAID ==
[~2021-09-03] VITALS: Ht 180.3 cm; Wt 102.7 kg
[2021-09-03 11:10] VITALS: BP 124/76
[~2021-09-03 11:10] MED LIST changes: +BELATACEPT IV ONE; +NS IV ONE
[2021-09-03 12:12] VITALS: BP 129/83
== END 2021-09-03 12:15 | disposition home or self-care (01) ==
LOC: M INFU 11:10
PROVIDERS: ATTEND Internal Medicine Nephrology
DX: Z94.0 Kidney transplant status (principal)
CPT/HCPCS: 96365; J0485

== ENCOUNTER 2021-10-01 11:00 | Outpatient (CLI) | payer MEDICARE, MEDICAID ==
[~2021-10-01] VITALS: Ht 180.3 cm; Wt 102.0 kg
[2021-10-01 11:00] VITALS: BP 160/78
[2021-10-01 12:10] VITALS: BP 129/69
== END 2021-10-01 12:10 | disposition home or self-care (01) ==
LOC: M INFU 11:00
PROVIDERS: ATTEND Internal Medicine Nephrology
DX: Z94.0 Kidney transplant status (principal)
CPT/HCPCS: 96365; J0485

== ENCOUNTER 2021-10-29 11:10 | Outpatient (CLI) | payer MEDICARE, MEDICAID ==
[~2021-10-29] VITALS: Ht 177.8 cm; Wt 103.6 kg
[2021-10-29 11:10] VITALS: BP_SYST 129; BP_SYST 141; BP_DIAS 69; BP_DIAS 86
[2021-10-29 12:20] VITALS: BP 155/84
== END 2021-10-29 12:20 | disposition home or self-care (01) ==
LOC: M INFU 11:10
PROVIDERS: ATTEND Internal Medicine Nephrology
DX: Z94.0 Kidney transplant status (principal)
CPT/HCPCS: 96365; J0485

== ENCOUNTER 2021-11-26 10:30 | Outpatient (CLI) | payer MEDICARE, MEDICAID ==
[~2021-11-26] VITALS: Ht 180.3 cm; Wt 102.7 kg
[2021-11-26 10:30] VITALS: BP 180/90
[2021-11-26 11:45] VITALS: BP 164/86
== END 2021-11-26 11:45 | disposition home or self-care (01) ==
LOC: M INFU 10:30
PROVIDERS: ATTEND Internal Medicine Nephrology
DX: Z94.0 Kidney transplant status (principal)
CPT/HCPCS: 96365; J0485

== ENCOUNTER 2021-12-24 10:30 | Outpatient (CLI) | payer MEDICARE, MEDICAID ==
[2021-12-24 10:40] VITALS: BP 159/95
[2021-12-24 12:15] VITALS: BP 169/99
== END 2021-12-24 12:15 | disposition home or self-care (01) ==
LOC: M INFU 10:30
PROVIDERS: ATTEND Internal Medicine Nephrology
DX: Z94.0 Kidney transplant status (principal)
CPT/HCPCS: 96365; J0485

== ENCOUNTER 2022-01-21 10:35 | Outpatient (CLI) | payer MEDICARE, MEDICAID ==
[~2022-01-21] VITALS: Ht 180.3 cm; Wt 103.6 kg
[2022-01-21 10:35] VITALS: BP 141/85
[~2022-01-21 10:35] MED LIST changes: +SPOR1CAP2 PO; -SPORCAP PO
[2022-01-21 12:10] VITALS: BP 174/98
== END 2022-01-21 12:10 | disposition home or self-care (01) ==
LOC: M INFU 10:35
PROVIDERS: ATTEND Internal Medicine Nephrology
DX: Z94.0 Kidney transplant status (principal)
CPT/HCPCS: 96365; J0485

== ENCOUNTER → 2022-02-13 | Outpatient (CLI) | payer MEDICARE, MEDICAID ==
[~2022-02-13] MED LIST changes: -BELATACEPT IV ONE; -NS IV ONE
== END ==
LOC: M WUC 10:17
PROVIDERS: ATTEND Nurse Practitioner Family
DX: R05.1 Acute cough (principal); Z94.0 Kidney transplant status

== ENCOUNTER 2022-02-18 10:35 | Outpatient (CLI) | payer MEDICARE, MEDICAID ==
[~2022-02-18] VITALS: Ht 180.3 cm; Wt 104.5 kg
[2022-02-18 10:35] VITALS: BP 140/82
[~2022-02-18 10:35] MED LIST changes: +BELATACEPT IV ONE; +NS IV ONE
[2022-02-18 11:58] VITALS: BP 122/72
== END 2022-02-18 12:00 | disposition home or self-care (01) ==
LOC: M INFU 10:35
PROVIDERS: ATTEND Internal Medicine Nephrology
DX: Z94.0 Kidney transplant status (principal)
CPT/HCPCS: 96365; J0485

== ENCOUNTER 2022-03-19 10:35 | Outpatient (CLI) | payer MEDICARE, MEDICAID ==
[~2022-03-19] VITALS: Ht 177.8 cm; Wt 103.6 kg
[2022-03-19 10:39] VITALS: BP 177/88
[2022-03-19 12:17] VITALS: BP 172/84
== END 2022-03-19 12:15 | disposition home or self-care (01) ==
LOC: M INFU 10:35
PROVIDERS: ATTEND Internal Medicine Nephrology
DX: Z94.0 Kidney transplant status (principal)
CPT/HCPCS: 96365; J0485

== ENCOUNTER → 2022-04-02 | Outpatient (CLI) | payer MEDICARE, MEDICAID ==
[~2022-04-02] MED LIST changes: -BELATACEPT IV ONE; -NS IV ONE
== END ==
LOC: M RAD 08:04
PROVIDERS: ATTEND Nurse Practitioner Family
DX: R91.8 Other nonspecific abnormal finding of lung field (principal)

== ENCOUNTER 2022-04-15 10:25 | Outpatient (CLI) | payer MEDICARE, MEDICAID ==
[2022-04-15 10:30] VITALS: BP 142/86
[2022-04-15] MEDS ORDERED: BELATACEPT IV ONE (10:30)
[2022-04-15] MEDS ORDERED: NS IV ONE (10:30)
[2022-04-15 12:12] VITALS: BP 156/88
== END 2022-04-15 12:15 | disposition home or self-care (01) ==
LOC: M INFU 10:25
PROVIDERS: ATTEND Internal Medicine Nephrology
DX: Z94.0 Kidney transplant status (principal)
CPT/HCPCS: 96365; J0485

== ENCOUNTER 2022-05-13 10:20 | Outpatient (CLI) | payer MEDICARE, MEDICAID ==
[2022-05-13 10:28] VITALS: BP 160/83
[2022-05-13] MEDS ORDERED: NS IV ONE (10:30)
[2022-05-13] MEDS ORDERED: BELATACEPT IV ONE (10:30)
[2022-05-13 11:15] VITALS: BP 159/89
== END 2022-05-13 11:30 ==
LOC: M INFU 10:20
PROVIDERS: ATTEND Internal Medicine Nephrology
DX: Z94.0 Kidney transplant status (principal)
CPT/HCPCS: 96365; J0485

== ENCOUNTER → 2022-05-24 | Outpatient (REF) | payer MEDICARE, MEDICAID | LOC: M LAB REF 16:38 | PROVIDERS: ATTEND Internal Medicine Nephrology | DX: N18.4 Chronic kidney disease, stage 4 (severe) (principal) ==

== ENCOUNTER 2022-06-10 09:18 | Outpatient (CLI) | payer MEDICARE, MEDICAID ==
[~2022-06-10] VITALS: Ht 180.3 cm; Wt 105.0 kg
[2022-06-10 09:23] VITALS: BP 148/86
[2022-06-10 10:15] VITALS: BP 132/75
[2022-06-10] MEDS ORDERED: BELATACEPT IV ONE (10:30)
[2022-06-10] MEDS ORDERED: NS IV ONE (10:30)
== END 2022-06-10 10:15 | disposition home or self-care (01) ==
LOC: M INFU 09:18
PROVIDERS: ATTEND Internal Medicine Nephrology
DX: Z94.0 Kidney transplant status (principal)
CPT/HCPCS: 96365; J0485

== ENCOUNTER 2022-07-08 10:30 | Outpatient (CLI) | payer MEDICARE, MEDICAID ==
[~2022-07-08] VITALS: Ht 180.3 cm; Wt 105.0 kg
[2022-07-08 10:30] VITALS: BP 141/65
[~2022-07-08 10:30] MED LIST changes: +BELATACEPT IV ONE; +NS IV ONE
[2022-07-08 11:45] VITALS: BP 164/88
== END 2022-07-08 11:45 | disposition home or self-care (01) ==
LOC: M INFU 10:30
PROVIDERS: ATTEND Internal Medicine Nephrology
DX: Z94.0 Kidney transplant status (principal)
CPT/HCPCS: 96365; J0485

== ENCOUNTER 2022-08-05 10:00 | Outpatient (CLI) | payer MEDICARE, MEDICAID ==
[~2022-08-05] VITALS: Ht 180.3 cm; Wt 105.0 kg
[2022-08-05 10:00] VITALS: BP 144/82
[~2022-08-05 10:00] MED LIST changes: -BELATACEPT IV ONE; -NS IV ONE
[2022-08-05] MEDS ORDERED: BELATACEPT IV ONE (10:30)
[2022-08-05] MEDS ORDERED: NS IV ONE (10:30)
[2022-08-05 10:51] VITALS: BP 178/84
== END 2022-08-05 10:53 | disposition home or self-care (01) ==
LOC: M INFU 10:00
PROVIDERS: ATTEND Internal Medicine Nephrology
DX: Z94.0 Kidney transplant status (principal)
CPT/HCPCS: 96365; J0485

== ENCOUNTER 2022-09-02 10:25 | Outpatient (CLI) | payer MEDICARE, MEDICAID ==
[~2022-09-02] VITALS: Ht 180.3 cm; Wt 105.0 kg
[2022-09-02] MEDS ORDERED: NS IV ONE (10:30)
[2022-09-02] MEDS ORDERED: BELATACEPT IV ONE (10:30)
[2022-09-02 10:44] VITALS: BP 173/88; O2SAT 98
[2022-09-02 11:31] VITALS: BP 153/75; O2SAT 99
== END 2022-09-02 11:40 | disposition home or self-care (01) ==
LOC: M INFU 10:25
PROVIDERS: ATTEND Internal Medicine Nephrology
DX: Z94.0 Kidney transplant status (principal)
CPT/HCPCS: 96365; J0485

== ENCOUNTER 2022-09-30 11:30 | Outpatient (CLI) | payer MEDICARE, MEDICAID ==
[~2022-09-30] VITALS: Ht 180.3 cm; Wt 105.0 kg
[~2022-09-30 11:30] MED LIST changes: +BELATACEPT IV ONE; +NS IV ONE
[2022-09-30 11:40] VITALS: BP 112/62; O2SAT 96
[2022-09-30] MEDS ORDERED: BELATACEPT IV ONE (13:00)
[2022-09-30] MEDS ORDERED: NS IV ONE (13:00)
[2022-09-30 13:42] VITALS: BP 138/88; O2SAT 98
== END 2022-09-30 13:45 ==
LOC: M INFU 11:30
PROVIDERS: ATTEND Internal Medicine Nephrology
DX: Z94.0 Kidney transplant status (principal)
CPT/HCPCS: 96365; J0485

== ENCOUNTER 2022-10-28 05:53 | Outpatient (CLI) | payer MEDICARE, MEDICAID ==
[~2022-10-28] VITALS: Ht 180.3 cm; Wt 109.3 kg
[~2022-10-28 05:53] MED LIST changes: -BELATACEPT IV ONE; -NS IV ONE
[2022-10-28 10:45] VITALS: BP 172/88; O2SAT 99
[2022-10-28] MEDS ORDERED: BELATACEPT IV ONE (11:00)
[2022-10-28] MEDS ORDERED: NS IV ONE (11:00)
[2022-10-28 12:00] VITALS: BP 189/89; O2SAT 98
== END 2022-10-28 12:00 ==
LOC: M INFU 05:53
PROVIDERS: ATTEND Internal Medicine Nephrology
DX: Z94.0 Kidney transplant status (principal)
CPT/HCPCS: 96365; J0485

== ENCOUNTER → 2022-11-11 | Outpatient (CLI) | payer MEDICARE, MEDICAID | LOC: M RAD 09:18 | PROVIDERS: ATTEND Surgery Vascular Surgery | DX: N18.5 Chronic kidney disease, stage 5 (principal) ==

== ENCOUNTER → 2022-11-12 | Outpatient (REF) | payer MEDICARE, MEDICAID ==
[2022-11-12 18:46] LABS: FERRITIN 115.4 NG/ML (10.5-307.3); PERCENT SATURATION 17.3 % (19.7-50.0)
== END ==
LOC: M LAB REF 17:26
PROVIDERS: ATTEND Nurse Practitioner Family
DX: D50.9 Iron deficiency anemia, unspecified (principal)

== ENCOUNTER 2022-11-25 10:35 | Outpatient (CLI) | payer MEDICARE, MEDICAID ==
[~2022-11-25] VITALS: Ht 175.3 cm; Wt 106.8 kg
[~2022-11-25 10:35] MED LIST changes: +CURRENT HEIGHT AND WEIGHT NEEDED ON PATIENT XX SCH
[2022-11-25 10:39] VITALS: BP 113/59; O2SAT 100
[2022-11-25] MEDS ORDERED: BELATACEPT IV ONE (11:00)
[2022-11-25] MEDS ORDERED: NS IV ONE (11:00)
[2022-11-25 12:00] VITALS: BP 134/74; O2SAT 100
== END 2022-11-25 12:00 ==
LOC: M INFU 10:35
PROVIDERS: ATTEND Internal Medicine Nephrology
DX: Z94.0 Kidney transplant status (principal)
CPT/HCPCS: 96365; J0485

== ENCOUNTER → 2022-12-18 | Outpatient (REF) | payer MEDICARE, MEDICAID ==
[~2022-12-18] MED LIST changes: -CURRENT HEIGHT AND WEIGHT NEEDED ON PATIENT XX SCH
[2022-12-18 18:42] LABS: PERCENT SATURATION 10.6 % (19.7-50.0)
[2022-12-18 18:44] LABS: FERRITIN 71.3 NG/ML (10.5-307.3)
== END ==
LOC: M LAB REF 17:12
PROVIDERS: ATTEND Nurse Practitioner Family
DX: D50.9 Iron deficiency anemia, unspecified (principal)

== ENCOUNTER 2022-12-23 11:00 | Outpatient (CLI) | payer MEDICARE, MEDICAID ==
[~2022-12-23] VITALS: Ht 177.8 cm; Wt 109.8 kg
[2022-12-23 11:00] VITALS: BP 124/79; O2SAT 96
[2022-12-23] MEDS ORDERED: NS IV ONE (11:30)
[2022-12-23] MEDS ORDERED: BELATACEPT IV ONE (11:30)
[2022-12-23 12:30] VITALS: BP 145/86; TEMP 36.4; O2SAT 96
== END 2022-12-23 12:30 | disposition home or self-care (01) ==
LOC: M INFU 11:00
PROVIDERS: ATTEND Internal Medicine Nephrology
DX: Z94.0 Kidney transplant status (principal)
CPT/HCPCS: 96365; J0485

== ENCOUNTER 2023-01-09 10:55 | Outpatient (CLI) | payer MEDICARE, MEDICAID ==
[~2023-01-09] VITALS: Ht 180.3 cm; Wt 113.3 kg
[2023-01-09 10:55] VITALS: BP 177/85; O2SAT 99
[~2023-01-09 10:55] MED LIST changes: +ALBUTEROL SULFATE 2.5MG/0.5ML INH NEB SOLN INH PRN; +EPINEPHrine INJ 1 MG/ML 1ML AMP IM PRN; +diphenhydrAMINE 50MG/ML VIAL IV PRN; +methylPREDNISolone 125MG 2ML VIAL IV PRN
[2023-01-09] MEDS ORDERED: NS 1,000 ML IV SCH (11:00)
[2023-01-09] MEDS ORDERED: FERRIC CARBOXYMALTOSE INJ 750 MG in NS 250 ML (>50kg) IV ONE ×3 (11:00)
[2023-01-09 12:35] VITALS: BP 178/92; O2SAT 96
== END 2023-01-09 12:35 ==
LOC: M INFU 10:55
PROVIDERS: ATTEND Nurse Practitioner Family
DX: D50.9 Iron deficiency anemia, unspecified (principal)
CPT/HCPCS: 96365; J1439

== ENCOUNTER 2023-01-20 10:25 | Outpatient (CLI) | payer MEDICARE, MEDICAID ==
[~2023-01-20] VITALS: Ht 180.3 cm; Wt 107.7 kg
[~2023-01-20 10:25] MED LIST changes: -ALBUTEROL SULFATE 2.5MG/0.5ML INH NEB SOLN INH PRN; -EPINEPHrine INJ 1 MG/ML 1ML AMP IM PRN; -diphenhydrAMINE 50MG/ML VIAL IV PRN; -methylPREDNISolone 125MG 2ML VIAL IV PRN
[2023-01-20] MEDS ORDERED: NS IV ONE (10:30)
[2023-01-20] MEDS ORDERED: BELATACEPT IV ONE (10:30)
[2023-01-20 11:17] VITALS: BP 185/89; O2SAT 97
[2023-01-20 12:00] VITALS: BP 173/88; O2SAT 98
[2023-01-21] MEDS ORDERED: NULO250I IV (09:54)
[2023-01-21] MEDS ORDERED: HYDR10TAB PO (09:54)
[2023-01-21] MEDS ORDERED: GLIP5TAB20 PO (09:54)
[2023-01-21] MEDS ORDERED: ECOT81TA5 PO (09:54)
[2023-01-21] MEDS ORDERED: OMEP40CA4 PO (09:54)
== END 2023-01-20 12:00 ==
LOC: M INFU 10:25
PROVIDERS: ATTEND Nurse Practitioner Family
DX: Z94.0 Kidney transplant status (principal)
CPT/HCPCS: 96365; J0485

== ENCOUNTER 2023-01-24 10:00 | Day surgery (SDC) | payer MEDICARE, MEDICAID ==
[~2023-01-24] VITALS: Ht 180.3 cm; Wt 104.2 kg
[~2023-01-24 10:00] MED LIST changes: +ECOT81TA5 PO; +GLIP5TAB20 PO; +HYDR10TAB PO; +NULO250I IV; +OMEP40CA4 PO; +ceFAZolin SOD 2 GM in IV 1 EA IV ONE
[2023-01-24 10:39] LABS: MEAN CORPUSCULAR HEMOGLOBIN 29.8 pg (27.0-33.0); MEAN CORPUSCULAR HGB CONC 31.4 g/dl (32.0-36.5); MEAN CORPUSCULAR VOLUME 94.9 fl (80.0-96.0); RED BLOOD COUNT 3.69 10^6/uL (4.30-6.10); WHITE BLOOD COUNT 5.6 10^3/uL (4.0-10.0)
[2023-01-24] MEDS ORDERED: LIDOCAINE 2% 100MG/5ML SDV (FOR ANES.) As Ordered ONE (10:41)
[2023-01-24] MEDS ORDERED: propofoL 200 MG/20 ML VIAL As Ordered ONE (10:41)
[2023-01-24] MEDS ORDERED: ONDANSETRON 4MG 2ML VIAL As Ordered ONE (10:42)
[2023-01-24] MEDS ORDERED: fentaNYL 100 MCG/2 ML INJECTION As Ordered ONE (10:42)
[2023-01-24] MEDS ORDERED: D5W/0.2% SODIUM CHLORIDE 1,000 ML IV SCH (10:45)
[2023-01-24 10:53] LABS: INR 1.05; PROTHROMBIN TIME 13.4 SECONDS (12.5-14.5)
[2023-01-24 10:54] LABS: PARTIAL THROMBOPLASTIN TIME 29.1 SECONDS (24.8-34.2)
[2023-01-24 10:56] LABS: PLATELET COUNT, AUTOMATED 93 10^3/uL (150-450)
[2023-01-24 10:59] LABS: CALCIUM LEVEL 8.4 MG/DL (8.5-10.1); CREATININE FOR GFR 4.15 MG/DL (0.70-1.30); GLOMERULAR FILTRATION RATE 16.6 (>60); POTASSIUM SERUM 4.6 MMOL/L (3.5-5.1)
[2023-01-24] MEDS ORDERED: PAPAVERINE HCL 60MG 2ML VIAL (30MG/ML) As Ordered ONE (11:22)
[2023-01-24] MEDS ORDERED: LIDOCAINE 1% SDV 30ML VIAL As Ordered ONE (11:22)
[2023-01-24] MEDS ORDERED: ATROPINE SULF 0.4 MG/ML 1ML VIAL As Ordered ONE (11:24)
[2023-01-24] MEDS ORDERED: GLYCOPYRROLATE INJ 0.2 MG/ML 2 ML VIAL As Ordered ONE (11:24)
[2023-01-24] MEDS ORDERED: ACETAMINOPHEN 1000MG 100ML IV BAG As Ordered ONE (11:26)
[2023-01-24] MEDS ORDERED: ceFAZolin 2 GM/D5W 50 ML IV BAG As Ordered ONE (12:59)
[2023-01-24] MEDS ORDERED: oxyCODONE 5MG TAB PO PRN (13:30)
[2023-01-24] MEDS ORDERED: HYDROMORPHONE HCL 0.5 MG/ 0.5 ML SYRINGE IV PRN (13:30)
[2023-01-24] MEDS ORDERED: ONDANSETRON 4MG 2ML VIAL IV PRN (13:30)
[2023-01-24] MEDS ORDERED: fentaNYL 100 MCG/2 ML INJECTION IV PRN (13:30)
[2023-01-24 14:15] VITALS: BP 159/86; TEMP 97; O2SAT 94
== END 2023-01-24 14:48 | disposition home or self-care (01) ==
LOC: M SDC 10:00
PROVIDERS: ATTEND Surgery Vascular Surgery
DX: N17.9 Acute kidney failure, unspecified (principal); Z94.0 Kidney transplant status; E11.9 Type 2 diabetes mellitus without complications; G47.30 Sleep apnea, unspecified; I10 Essential (primary) hypertension; M10.9 Gout, unspecified; Z79.899 Other long term (current) drug therapy; Z79.51 Long term (current) use of inhaled steroids; Z79.82 Long term (current) use of aspirin; Z79.4 Long term (current) use of insulin; F32.A Depression, unspecified; F41.9 Anxiety disorder, unspecified; Z79.52 Long term (current) use of systemic steroids; F17.220 Nicotine dependence, chewing tobacco, uncomplicated
CPT/HCPCS: 36415; 36821; 80048; 85027; 85049; 85055; 85610; 85730; J0131; J0461; J0690; J1100; J2405; J2440; J3010

== ENCOUNTER 2023-02-17 10:30 | Outpatient (CLI) | payer MEDICARE, MEDICAID ==
[~2023-02-17] VITALS: Ht 180.3 cm; Wt 108.0 kg
[2023-02-17 10:30] VITALS: BP 140/77; O2SAT 100
[~2023-02-17 10:30] MED LIST changes: +BELATACEPT IV ONE; +NS IV ONE; -ceFAZolin SOD 2 GM in IV 1 EA IV ONE
[2023-02-17 11:45] VITALS: BP 170/88; O2SAT 99
== END 2023-02-17 11:50 | disposition home or self-care (01) ==
LOC: M INFU 10:30
PROVIDERS: ATTEND Nurse Practitioner Family
DX: Z94.0 Kidney transplant status (principal)
CPT/HCPCS: 96365; J0485

== ENCOUNTER 2023-03-18 10:41 | Outpatient (CLI) | payer MEDICARE, MEDICAID ==
[~2023-03-18] VITALS: Ht 177.8 cm; Wt 114.4 kg
[2023-03-18 12:30] VITALS: BP 176/94; O2SAT 97
== END 2023-03-18 12:33 | disposition home or self-care (01) ==
LOC: M INFU 10:41
PROVIDERS: ATTEND Internal Medicine Nephrology
DX: Z94.0 Kidney transplant status (principal)
CPT/HCPCS: 96365; J0485

== ENCOUNTER 2023-03-28 10:27 | Inpatient (IN) | payer MEDICARE, MEDICAID ==
[~2023-03-28] VITALS: Ht 180.3 cm; Wt 117.2 kg
[~2023-03-28 10:27] MED LIST changes: -BELATACEPT IV ONE; +HYDR-161 PO; -HYDR10TAB PO; +IRBE300T25 PO; -IRBE300T7 PO; -NS IV ONE
[2023-03-28 11:27] LABS: VENOUS BASE EXCESS -5.4 (-2.0-2.0); VENOUS HCO3 21.2 MMOL/L (23.0-27.0); VENOUS O2 SATURATION 57.2 % (60.0-80.0); VENOUS PARTIAL PRESSURE CO2 46.1 mmHg (38.0-50.0); VENOUS PARTIAL PRESSURE O2 31.3 mmHg (30.0-50.0); VENOUS PH 7.281 UNITS (7.330-7.430); VENOUS STANDARD HCO3 19.3 MMOL/L; VENOUS TOTAL CO2 22.6 MMOL/L (24.0-28.0)
[2023-03-28 11:46] LABS: BASO % 0.2 % (0.0-1.0); EOS % 0.2 % (0.0-3.0); HEMATOCRIT 31.6 % (42.0-52.0); HEMOGLOBIN 9.8 g/dl (13.5-17.5); LYMPH # 0.2 10^3/uL (1.5-5.0); LYMPH % 2.6 % (24.0-44.0); MEAN CORPUSCULAR HEMOGLOBIN 29.7 pg (27.0-33.0); MEAN CORPUSCULAR VOLUME 95.8 fl (80.0-96.0); MONO # 0.4 10^3/uL (0.0-0.8); MONO % 6.2 % (2.0-8.0); NEUTROPHILS # 5.5 10^3/uL (1.5-8.5); NEUTROPHILS % 90.3 % (36.0-66.0); WHITE BLOOD COUNT 6.1 10^3/uL (4.0-10.0)
[2023-03-28 11:52] LABS: PLATELET COUNT, AUTOMATED 84 10^3/uL (150-450)
[2023-03-28 11:58] LABS: BILIRUBIN,DIRECT 0.3 MG/DL (<0.4); BILIRUBIN,TOTAL 0.7 MG/DL (0.3-1.2); CALCIUM LEVEL 8.6 MG/DL (8.5-10.1); CREATININE FOR GFR 4.35 MG/DL (0.70-1.30); GLOMERULAR FILTRATION RATE 15.7 (>60); POTASSIUM SERUM 5.3 MMOL/L (3.5-5.1); TOTAL PROTEIN 5.5 G/DL (5.7-8.2)
[2023-03-28 12:01] LABS: THYROID STIMULATING HORMONE 3.678 uIU/ML (0.55-4.78)
[2023-03-28] MEDS ORDERED: cefTRIAXone SOD 1 GM in D5W MINI-BAG PLUS 50 ML IV ONE ×2 (12:30→13:40)
[2023-03-28] MEDS ORDERED: AZITHROMYCIN 250MG TABLET PO ONE (12:30)
[2023-03-28] MEDS ORDERED: MED REC IN PROGRESS XX SCH (13:05)
[2023-03-28] MEDS ORDERED: **hydrALAZINE** 10 MG TAB PO ONE (13:45)
[2023-03-28] MEDS ORDERED: IRBESARTAN 150MG TAB PO ONE ×2 (14:00→22:00)
[2023-03-28] MEDS ORDERED: LR 1,000 ML IV SCH (14:30)
[2023-03-28] MEDS ORDERED: CALCIUM GLUCONATE 1,000 MG in D5W MINI-BAG PLUS 100 ML IV ONE (15:00)
[2023-03-28] MEDS ORDERED: LANTINJ4 SC (15:00)
[2023-03-28] MEDS ORDERED: HOME MED LIST COMPLETE! XX SCH (15:05)
[2023-03-28] MEDS: OSELTAMIVIR PHOSPHATE 30MG CAPSULE PO SCH (15:08)
[2023-03-28 16:04] VITALS: BP 166/73; TEMP 99.9; O2SAT 92
[2023-03-28] MEDS ORDERED: GLUCAGON INJ 1MG VIAL SC PRN (16:50)
[2023-03-28] MEDS ORDERED: GLUCOSE 4GM CHEW TABLET PO PRN (16:50)
[2023-03-28] MEDS ORDERED: DEXTROSE 50% 50ML SYRINGE IV PRN (16:50)
[2023-03-28] MEDS: INSULIN LISPRO (NovoLOG) PER UNIT SC SCH ×2 (16:55→20:30)
[2023-03-28] MEDS: ADVAIR HFA 115/21MCG INHALER INH SCH (19:24)
[2023-03-28] MEDS: ALBUTEROL 90 MCG/ACT 8GM HFA INHALER INH PRN (19:24)
[2023-03-28] MEDS ORDERED: ACETAMINOPHEN TAB 650MG DOSE (2X325MG) PO ONE (19:40)
[2023-03-28 19:43] VITALS: BP 172/83; TEMP 100.2; O2SAT 88
[2023-03-28 20:07] VITALS: TEMP 100.1; O2SAT 88
[2023-03-28] MEDS: PRAVASTATIN 20 MG TAB PO SCH (20:40)
[2023-03-28] MEDS: ESCITALOPRAM OXALATE 10 MG TAB (LEXAPRO) PO SCH (20:40)
[2023-03-28] MEDS: **hydrALAZINE** 10 MG TAB PO SCH (20:41)
[2023-03-28] MEDS: METOPROLOL TARTRATE 100MG TAB PO SCH (20:42)
[2023-03-28] MEDS ORDERED: LEVEMIR (INSULIN DETEMIR) 1 UNITS/0.01ML SC SCH (21:00)
[2023-03-28 22:21] VITALS: BP 157/75; TEMP 100.7; O2SAT 88
[2023-03-28] MEDS ORDERED: IPRATROPIUM 0.5MG/ALBUTEROL 2.5MG INH SOL UD 3ML (DUONEB) NEB ONE (23:00)
[2023-03-28 23:50] VITALS: BP 161/78; TEMP 100.5; O2SAT 90
[2023-03-29] VITALS (7 sets, daily range): BP systolic 158–182; BP diastolic 70–92; TEMP 97.9–101.2; O2SAT 88–92
[2023-03-29] MEDS ORDERED: ACETAMINOPHEN TAB 650MG DOSE (2X325MG) PO ONE (02:00)
[2023-03-29 06:27] LABS: HEMOGLOBIN 8.4 g/dl (13.5-17.5); LYMPH # 0.4 10^3/uL (1.5-5.0); MEAN CORPUSCULAR HEMOGLOBIN 29.8 pg (27.0-33.0); MEAN CORPUSCULAR HGB CONC 31.1 g/dl (32.0-36.5); MEAN CORPUSCULAR VOLUME 95.7 fl (80.0-96.0); MONO # 0.5 10^3/uL (0.0-0.8); MONO % 12.9 % (2.0-8.0); NEUTROPHILS # 2.6 10^3/uL (1.5-8.5); RED BLOOD COUNT 2.82 10^6/uL (4.30-6.10); WHITE BLOOD COUNT 3.5 10^3/uL (4.0-10.0)
[2023-03-29 06:28] LABS: PLATELET COUNT, AUTOMATED 69 10^3/uL (150-450)
[2023-03-29 07:10] LABS: CREATININE FOR GFR 4.43 MG/DL (0.70-1.30); GLOMERULAR FILTRATION RATE 15.4 (>60); POTASSIUM SERUM 4.6 MMOL/L (3.5-5.1)
[2023-03-29] MEDS: ADVAIR HFA 115/21MCG INHALER INH SCH ×2 (07:29→20:29)
[2023-03-29] MEDS: INSULIN LISPRO (NovoLOG) PER UNIT SC SCH ×4 (07:30→20:15)
[2023-03-29] MEDS: ALBUTEROL 90 MCG/ACT 8GM HFA INHALER INH PRN ×2 (07:31→14:53)
[2023-03-29] MEDS: LEVEMIR (INSULIN DETEMIR) 1 UNITS/0.01ML SC SCH (09:00)
[2023-03-29] MEDS ORDERED: predniSONE 5 MG TAB PO SCH (09:00)
[2023-03-29] MEDS ORDERED: glipiZIDE XL 5 MG TABCR PO SCH (09:00)
[2023-03-29] MEDS: ASPIRIN 81MG ENTERIC TABLET PO SCH (09:56)
[2023-03-29] MEDS: FOLIC ACID 1MG TAB PO SCH (09:56)
[2023-03-29] MEDS: MULTIVITAMINS/MINERALS THERAP 1 TAB PO SCH (09:56)
[2023-03-29] MEDS: CYANOCOBALAMIN 500 MCG TAB PO SCH (09:56)
[2023-03-29] MEDS: AZITHROMYCIN 250MG TABLET PO SCH (09:56)
[2023-03-29] MEDS: OSELTAMIVIR PHOSPHATE 30MG CAPSULE PO SCH (09:56)
[2023-03-29] MEDS: PANTOPRAZOLE 40MG TAB (PROTONIX) PO SCH (09:56)
[2023-03-29] MEDS: METOPROLOL TARTRATE 100MG TAB PO SCH ×2 (09:57→20:55)
[2023-03-29] MEDS: IRBESARTAN 150MG TAB PO SCH (09:58)
[2023-03-29] MEDS: **hydrALAZINE** 10 MG TAB PO SCH ×2 (09:58→20:55)
[2023-03-29 11:27] LABS: PROCALCITONIN 0.24 ng/ml
[2023-03-29] MEDS ORDERED: VANCOMYCIN HCL 1,000 MG, VIAL MATE ADAPTER 1 EACH in D5W 250 ML IV ONE (12:00)
[2023-03-29] MEDS: cefTRIAXone SOD 2 GM in D5W MINI-BAG PLUS 50 ML IV SCH (14:32)
[2023-03-29] MEDS ORDERED: FUROSEMIDE 100MG/10ML VIAL IV ONE ×2 (14:55→21:00)
[2023-03-29] MEDS: methylPREDNISolone 125MG 2ML VIAL IV SCH (15:38)
[2023-03-29] MEDS ORDERED: VANCOMYCIN HCL 1,000 MG, VIAL MATE ADAPTER 1 EACH in D5W 250 ML IV SCH (16:00)
[2023-03-29] MEDS: MUPIROCIN 2% OINT 22 GM TUBE TOP SCH ×2 (18:00→20:56)
[2023-03-29] MEDS ORDERED: LEVALBUTEROL 1.25MG 0.5ML CONCENTRATE NEB NEB ONE (18:15)
[2023-03-29] MEDS: PRAVASTATIN 20 MG TAB PO SCH (20:55)
[2023-03-29] MEDS: ESCITALOPRAM OXALATE 10 MG TAB (LEXAPRO) PO SCH (20:56)
[2023-03-30 00:35] VITALS: BP 175/79
[2023-03-30] MEDS: methylPREDNISolone 125MG 2ML VIAL IV SCH (03:52)
[2023-03-30 05:37] VITALS: BP 171/80; TEMP 97.6; O2SAT 84
[2023-03-30 06:00] LABS: BASO % 0.4 % (0.0-1.0); HEMATOCRIT 27.8 % (42.0-52.0); LYMPH # 0.3 10^3/uL (1.5-5.0); LYMPH % 9.7 % (24.0-44.0); MEAN CORPUSCULAR HEMOGLOBIN 30.2 pg (27.0-33.0); MEAN CORPUSCULAR HGB CONC 32.4 g/dl (32.0-36.5); MEAN CORPUSCULAR VOLUME 93.3 fl (80.0-96.0); MONO # 0.1 10^3/uL (0.0-0.8); MONO % 4.3 % (2.0-8.0); NEUTROPHILS # 2.2 10^3/uL (1.5-8.5); NEUTROPHILS % 84.8 % (36.0-66.0); RED BLOOD COUNT 2.98 10^6/uL (4.30-6.10); WHITE BLOOD COUNT 2.6 10^3/uL (4.0-10.0)
[2023-03-30 06:02] LABS: PLATELET COUNT, AUTOMATED 82 10^3/uL (150-450)
[2023-03-30 06:22] LABS: CALCIUM LEVEL 8.8 MG/DL (8.5-10.1); CREATININE FOR GFR 4.82 MG/DL (0.70-1.30); GLOMERULAR FILTRATION RATE 13.9 (>60); POTASSIUM SERUM 4.8 MMOL/L (3.5-5.1)
[2023-03-30] MEDS: ADVAIR HFA 115/21MCG INHALER INH SCH ×2 (07:29→19:46)
[2023-03-30] MEDS: LEVALBUTEROL 1.25MG 0.5ML CONCENTRATE NEB INH PRN ×2 (07:30→19:46)
[2023-03-30 08:29] LABS: VANCOMYCIN RANDOM 17.1 UG/ML
[2023-03-30] MEDS: LEVEMIR (INSULIN DETEMIR) 1 UNITS/0.01ML SC SCH (08:50)
[2023-03-30] MEDS: AZITHROMYCIN 250MG TABLET PO SCH (08:51)
[2023-03-30] MEDS: CYANOCOBALAMIN 500 MCG TAB PO SCH (08:51)
[2023-03-30] MEDS: IRBESARTAN 150MG TAB PO SCH (08:51)
[2023-03-30] MEDS: INSULIN LISPRO (NovoLOG) PER UNIT SC SCH ×4 (08:51→21:00)
[2023-03-30] MEDS: METOPROLOL TARTRATE 100MG TAB PO SCH ×2 (08:52→22:24)
[2023-03-30] MEDS: **hydrALAZINE** 10 MG TAB PO SCH ×2 (08:52→22:24)
[2023-03-30] MEDS: OSELTAMIVIR PHOSPHATE 30MG CAPSULE PO SCH (08:52)
[2023-03-30] MEDS: FOLIC ACID 1MG TAB PO SCH (08:52)
[2023-03-30] MEDS: MULTIVITAMINS/MINERALS THERAP 1 TAB PO SCH (08:52)
[2023-03-30] MEDS: PANTOPRAZOLE 40MG TAB (PROTONIX) PO SCH (08:52)
[2023-03-30] MEDS: ASPIRIN 81MG ENTERIC TABLET PO SCH (08:52)
[2023-03-30] MEDS: MUPIROCIN 2% OINT 22 GM TUBE TOP SCH ×4 (08:53→22:31)
[2023-03-30] MEDS ORDERED: VANCOMYCIN HCL 750 MG, VIAL MATE ADAPTER 1 EACH in D5W 250 ML IV SCH (10:00)
[2023-03-30] MEDS: cefTRIAXone SOD 2 GM in D5W MINI-BAG PLUS 50 ML IV SCH (12:54)
[2023-03-30 14:00] VITALS: BP 163/87; TEMP 98.4; O2SAT 95
[2023-03-30 20:22] VITALS: BP 174/78; TEMP 99; O2SAT 93
[2023-03-30] MEDS: PRAVASTATIN 20 MG TAB PO SCH (22:24)
[2023-03-30] MEDS: ESCITALOPRAM OXALATE 10 MG TAB (LEXAPRO) PO SCH (22:25)
[2023-03-31 05:32] VITALS: BP 157/86; TEMP 97.4; O2SAT 94
[2023-03-31 06:12] LABS: HEMATOCRIT 28.2 % (42.0-52.0); HEMOGLOBIN 9.2 g/dl (13.5-17.5); LYMPH # 0.3 10^3/uL (1.5-5.0); LYMPH % 7.9 % (24.0-44.0); MEAN CORPUSCULAR HEMOGLOBIN 30.6 pg (27.0-33.0); MEAN CORPUSCULAR HGB CONC 32.6 g/dl (32.0-36.5); MEAN CORPUSCULAR VOLUME 93.7 fl (80.0-96.0); MONO # 0.3 10^3/uL (0.0-0.8); MONO % 6.7 % (2.0-8.0); NEUTROPHILS # 3.7 10^3/uL (1.5-8.5); NEUTROPHILS % 84.9 % (36.0-66.0); RED BLOOD COUNT 3.01 10^6/uL (4.30-6.10); WHITE BLOOD COUNT 4.3 10^3/uL (4.0-10.0)
[2023-03-31 06:13] LABS: PLATELET COUNT, AUTOMATED 77 10^3/uL (150-450)
[2023-03-31 06:19] LABS: CALCIUM LEVEL 8.3 MG/DL (8.5-10.1); CREATININE FOR GFR 4.77 MG/DL (0.70-1.30); GLOMERULAR FILTRATION RATE 14.1 (>60); POTASSIUM SERUM 4.7 MMOL/L (3.5-5.1)
[2023-03-31] MEDS: LEVALBUTEROL 1.25MG 0.5ML CONCENTRATE NEB INH PRN ×2 (07:22→19:02)
[2023-03-31] MEDS: ADVAIR HFA 115/21MCG INHALER INH SCH ×2 (07:23→19:02)
[2023-03-31] MEDS: LEVEMIR (INSULIN DETEMIR) 1 UNITS/0.01ML SC SCH (08:41)
[2023-03-31] MEDS: MUPIROCIN 2% OINT 22 GM TUBE TOP SCH ×4 (08:42→21:53)
[2023-03-31] MEDS: methylPREDNISolone 125MG 2ML VIAL IV SCH (08:42)
[2023-03-31] MEDS: INSULIN LISPRO (NovoLOG) PER UNIT SC SCH ×4 (08:42→21:51)
[2023-03-31] MEDS: FOLIC ACID 1MG TAB PO SCH (08:43)
[2023-03-31] MEDS: IRBESARTAN 150MG TAB PO SCH (08:43)
[2023-03-31] MEDS: METOPROLOL TARTRATE 100MG TAB PO SCH ×2 (08:43→21:52)
[2023-03-31] MEDS: AZITHROMYCIN 250MG TABLET PO SCH (08:43)
[2023-03-31] MEDS: MULTIVITAMINS/MINERALS THERAP 1 TAB PO SCH (08:44)
[2023-03-31] MEDS: **hydrALAZINE** 10 MG TAB PO SCH ×4 (08:44→21:52)
[2023-03-31] MEDS: ASPIRIN 81MG ENTERIC TABLET PO SCH (08:44)
[2023-03-31] MEDS: PANTOPRAZOLE 40MG TAB (PROTONIX) PO SCH (08:44)
[2023-03-31] MEDS: OSELTAMIVIR PHOSPHATE 30MG CAPSULE PO SCH (08:44)
[2023-03-31] MEDS: CYANOCOBALAMIN 500 MCG TAB PO SCH (08:44)
[2023-03-31] MEDS: cefTRIAXone SOD 2 GM in D5W MINI-BAG PLUS 50 ML IV SCH (13:15)
[2023-03-31 14:00] VITALS: BP 163/89; TEMP 98.1; O2SAT 94
[2023-03-31 20:00] VITALS: BP 156/79; TEMP 98.2; O2SAT 92
[2023-03-31] MEDS: ESCITALOPRAM OXALATE 10 MG TAB (LEXAPRO) PO SCH (21:51)
[2023-03-31] MEDS: PRAVASTATIN 20 MG TAB PO SCH (21:52)
[2023-04-01 06:00] VITALS: BP 147/75; TEMP 96.8; O2SAT 93
[2023-04-01 06:29] LABS: HEMOGLOBIN 9.1 g/dl (13.5-17.5); LYMPH # 0.4 10^3/uL (1.5-5.0); LYMPH % 8.5 % (24.0-44.0); MEAN CORPUSCULAR HEMOGLOBIN 29.8 pg (27.0-33.0); MEAN CORPUSCULAR HGB CONC 31.4 g/dl (32.0-36.5); MEAN CORPUSCULAR VOLUME 95.1 fl (80.0-96.0); MONO # 0.3 10^3/uL (0.0-0.8); NEUTROPHILS # 3.8 10^3/uL (1.5-8.5); NEUTROPHILS % 84.8 % (36.0-66.0); RED BLOOD COUNT 3.05 10^6/uL (4.30-6.10); WHITE BLOOD COUNT 4.5 10^3/uL (4.0-10.0)
[2023-04-01 06:32] LABS: PLATELET COUNT, AUTOMATED 79 10^3/uL (150-450)
[2023-04-01 06:51] LABS: CREATININE FOR GFR 4.66 MG/DL (0.70-1.30); GLOMERULAR FILTRATION RATE 14.5 (>60); POTASSIUM SERUM 4.8 MMOL/L (3.5-5.1)
[2023-04-01] MEDS: ADVAIR HFA 115/21MCG INHALER INH SCH ×2 (07:39→19:20)
[2023-04-01] MEDS: METOPROLOL TARTRATE 100MG TAB PO SCH ×2 (09:00→21:03)
[2023-04-01] MEDS: FOLIC ACID 1MG TAB PO SCH (09:01)
[2023-04-01] MEDS: PANTOPRAZOLE 40MG TAB (PROTONIX) PO SCH (09:01)
[2023-04-01] MEDS: ASPIRIN 81MG ENTERIC TABLET PO SCH (09:01)
[2023-04-01] MEDS: AZITHROMYCIN 250MG TABLET PO SCH (09:01)
[2023-04-01] MEDS: CYANOCOBALAMIN 500 MCG TAB PO SCH (09:02)
[2023-04-01] MEDS: OSELTAMIVIR PHOSPHATE 30MG CAPSULE PO SCH (09:02)
[2023-04-01] MEDS: MULTIVITAMINS/MINERALS THERAP 1 TAB PO SCH (09:02)
[2023-04-01] MEDS: methylPREDNISolone 125MG 2ML VIAL IV SCH (09:03)
[2023-04-01] MEDS: INSULIN LISPRO (NovoLOG) PER UNIT SC SCH ×4 (09:03→21:06)
[2023-04-01] MEDS: LEVEMIR (INSULIN DETEMIR) 1 UNITS/0.01ML SC SCH (09:03)
[2023-04-01] MEDS: **hydrALAZINE** 10 MG TAB PO SCH ×3 (09:07→21:04)
[2023-04-01] MEDS: MUPIROCIN 2% OINT 22 GM TUBE TOP SCH ×4 (09:12→21:06)
[2023-04-01] MEDS: IRBESARTAN 150MG TAB PO SCH (10:41)
[2023-04-01 14:00] VITALS: BP 165/83; TEMP 98.4; O2SAT 92
[2023-04-01] MEDS: CEPHALEXIN 500 MG CAP PO SCH ×2 (14:58→21:04)
[2023-04-01] MEDS: LEVALBUTEROL 1.25MG 0.5ML CONCENTRATE NEB INH PRN (19:20)
[2023-04-01 20:52] VITALS: TEMP 98.2; O2SAT 95
[2023-04-01 21:00] VITALS: BP 170/66
[2023-04-01] MEDS: ESCITALOPRAM OXALATE 10 MG TAB (LEXAPRO) PO SCH (21:03)
[2023-04-01] MEDS: PRAVASTATIN 20 MG TAB PO SCH (21:04)
[2023-04-02 06:34] VITALS: BP 153/76; TEMP 98.1; O2SAT 93
[2023-04-02 06:38] LABS: HEMATOCRIT 29.5 % (42.0-52.0); HEMOGLOBIN 9.4 g/dl (13.5-17.5); LYMPH # 0.4 10^3/uL (1.5-5.0); LYMPH % 8.2 % (24.0-44.0); MEAN CORPUSCULAR HEMOGLOBIN 29.8 pg (27.0-33.0); MEAN CORPUSCULAR HGB CONC 31.9 g/dl (32.0-36.5); MEAN CORPUSCULAR VOLUME 93.7 fl (80.0-96.0); MONO # 0.3 10^3/uL (0.0-0.8); MONO % 7.6 % (2.0-8.0); NEUTROPHILS # 3.8 10^3/uL (1.5-8.5); NEUTROPHILS % 83.8 % (36.0-66.0); RED BLOOD COUNT 3.15 10^6/uL (4.30-6.10); WHITE BLOOD COUNT 4.5 10^3/uL (4.0-10.0)
[2023-04-02 06:42] LABS: PLATELET COUNT, AUTOMATED 77 10^3/uL (150-450)
[2023-04-02 07:01] LABS: CALCIUM LEVEL 7.8 MG/DL (8.5-10.1); CREATININE FOR GFR 4.35 MG/DL (0.70-1.30); GLOMERULAR FILTRATION RATE 15.7 (>60); POTASSIUM SERUM 4.5 MMOL/L (3.5-5.1)
[2023-04-02] MEDS: ADVAIR HFA 115/21MCG INHALER INH SCH (07:50)
[2023-04-02 08:09] VITALS: BP 153/76
[2023-04-02] MEDS: **hydrALAZINE** 10 MG TAB PO SCH (08:09)
[2023-04-02] MEDS: CEPHALEXIN 500 MG CAP PO SCH (08:10)
[2023-04-02] MEDS: MULTIVITAMINS/MINERALS THERAP 1 TAB PO SCH (08:10)
[2023-04-02] MEDS: CYANOCOBALAMIN 500 MCG TAB PO SCH (08:10)
[2023-04-02] MEDS: INSULIN LISPRO (NovoLOG) PER UNIT SC SCH ×2 (08:10→12:00)
[2023-04-02] MEDS: PANTOPRAZOLE 40MG TAB (PROTONIX) PO SCH (08:10)
[2023-04-02] MEDS: FOLIC ACID 1MG TAB PO SCH (08:10)
[2023-04-02] MEDS: METOPROLOL TARTRATE 100MG TAB PO SCH (08:11)
[2023-04-02] MEDS: LEVEMIR (INSULIN DETEMIR) 1 UNITS/0.01ML SC SCH (08:11)
[2023-04-02] MEDS: IRBESARTAN 150MG TAB PO SCH (08:16)
[2023-04-02] MEDS: MUPIROCIN 2% OINT 22 GM TUBE TOP SCH (08:16)
[2023-04-02] MEDS: ASPIRIN 81MG ENTERIC TABLET PO SCH (08:16)
[2023-04-02] MEDS ORDERED: ALBU6.7H6 INH (10:47)
[2023-04-02] MEDS ORDERED: PRED10TA2 PO (10:47)
[2023-04-02] MEDS ORDERED: CEPH500C PO (10:47)
[2023-04-02 16:08] LABS: BODY FLUID CULTURE Not indicated. (.); LEGIONELLA ANTIGEN URINE Negative (Negative); ORGANISM ID Not indicated. (.); SPECIMEN SOURCE Urine (.); URINE STREP PNEUMONIAE ANTIGEN Negative (Negative)
[2023-04-03 08:10] LABS: EBV PCR QUAL WHOLE BLD Negative (Negative); HSV-1 DNA Negative (Negative); HSV-2 DNA Negative (Negative)
== END 2023-04-02 12:45 | disposition home or self-care (01) | DRG 178 ==
LOC: M ED 10:27 → M ED INP 13:35 → ENRESERV 15:09 → M MSPAV 15:46
PROVIDERS: ADMIT General Practice; ATTEND General Practice
PROC: B246ZZZ Ultrasonography of Right and Left Heart (ICD-10-PCS; principal; 2023-03-29)
DX: J10.08 Influenza due to other identified influenza virus with other specified pneumonia (principal); J15.69 Pneumonia due to other Gram-negative bacteria; N18.5 Chronic kidney disease, stage 5; J98.11 Atelectasis; D84.821 Immunodeficiency due to drugs; Z94.0 Kidney transplant status; N25.81 Secondary hyperparathyroidism of renal origin; N17.9 Acute kidney failure, unspecified; E87.20 Acidosis, unspecified; B00.9 Herpesviral infection, unspecified; G47.33 Obstructive sleep apnea (adult) (pediatric); D63.1 Anemia in chronic kidney disease; I15.0 Renovascular hypertension; E66.9 Obesity, unspecified; Z68.37 Body mass index [BMI] 37.0-37.9, adult; I16.0 Hypertensive urgency; E87.5 Hyperkalemia; F32.A Depression, unspecified; J45.909 Unspecified asthma, uncomplicated; J44.1 Chronic obstructive pulmonary disease with (acute) exacerbation; R21 Rash and other nonspecific skin eruption; E13.22 Other specified diabetes mellitus with diabetic chronic kidney disease; G40.909 Epilepsy, unspecified, not intractable, without status epilepticus; E78.5 Hyperlipidemia, unspecified; J44.0 Chronic obstructive pulmonary disease with (acute) lower respiratory infection; E13.65 Other specified diabetes mellitus with hyperglycemia; T38.0X5A Adverse effect of glucocorticoids and synthetic analogues, initial encounter; Z98.84 Bariatric surgery status; Z86.711 Personal history of pulmonary embolism; Z79.82 Long term (current) use of aspirin; Z79.01 Long term (current) use of anticoagulants; Z79.84 Long term (current) use of oral hypoglycemic drugs; Z79.52 Long term (current) use of systemic steroids; Z79.899 Other long term (current) drug therapy

== ENCOUNTER 2023-04-09 21:31 | Emergency (ER) | payer MEDICARE, MEDICAID ==
[~2023-04-09] VITALS: Ht 180.3 cm; Wt 117.0 kg
[~2023-04-09 21:31] MED LIST changes: +ALBU6.7H6 INH; +CEPH500C PO; +LANTINJ4 SC; +PRED10TA2 PO
[2023-04-09 22:08] LABS: HEMATOCRIT 34.5 % (42.0-52.0); HEMOGLOBIN 10.9 g/dl (13.5-17.5); MEAN CORPUSCULAR HEMOGLOBIN 30.1 pg (27.0-33.0); MEAN CORPUSCULAR HGB CONC 31.6 g/dl (32.0-36.5); MEAN CORPUSCULAR VOLUME 95.3 fl (80.0-96.0); PLATELET COUNT, AUTOMATED 105 10^3/uL (150-450); RED BLOOD COUNT 3.62 10^6/uL (4.30-6.10); WHITE BLOOD COUNT 7.5 10^3/uL (4.0-10.0)
[2023-04-09 22:25] LABS: LYMPHOCYTES 3 % (16-44); METAMYELOCYTES 1 % (0-0); MONOCYTES 3 % (0-5); MYELOCYTES 2 % (0-0); NEUTROPHILS 90 % (28-66); PLATELET ESTIMATE DECREASED (NORMAL)
[2023-04-09 22:28] LABS: TEAR DROP CELLS 1+
[2023-04-09 22:43] LABS: CALCIUM LEVEL 7.4 MG/DL (8.5-10.1); CK-MB VALUE MASS 4.3 NG/ML (<3.6); CREATININE FOR GFR 3.86 MG/DL (0.70-1.30); MB/CK RELATIVE INDEX 2.65 (< OR =4); POTASSIUM SERUM 4.8 MMOL/L (3.5-5.1)
[2023-04-09] MEDS ORDERED: HumuLIN R (REGULAR) INSULIN (NovoLIN R) **100U/ML** PER UNIT IV ONE (22:50)
[2023-04-09 23:50] LABS: CK-MB VALUE MASS 4.6 NG/ML (<3.6)
[2023-04-09 23:51] LABS: MB/CK RELATIVE INDEX 3.43 (< OR =4)
[2023-04-10] MEDS ORDERED: HEPARIN DRIP 25,000 UNITS in IV 1 EA IV SCH (02:20)
[2023-04-10] MEDS ORDERED: ISOVUE-370 76% 100ML VIAL As Ordered ONE (02:26)
[2023-04-10 06:11] LABS: INR 1.14; PROTHROMBIN TIME 14.3 SECONDS (12.5-14.5)
[2023-04-10 06:12] LABS: PARTIAL THROMBOPLASTIN TIME 32.9 SECONDS (24.8-34.2)
[2023-04-10 07:16] VITALS: BP 181/105; TEMP 97; O2SAT 100
== END 2023-04-10 07:20 | disposition short-term general hospital (02) ==
LOC: M ED 21:31
DX: I21.4 Non-ST elevation (NSTEMI) myocardial infarction (principal); I26.99 Other pulmonary embolism without acute cor pulmonale; N18.5 Chronic kidney disease, stage 5; Z94.0 Kidney transplant status; K80.20 Calculus of gallbladder without cholecystitis without obstruction; R91.1 Solitary pulmonary nodule; I51.9 Heart disease, unspecified; E11.9 Type 2 diabetes mellitus without complications; I10 Essential (primary) hypertension; E78.5 Hyperlipidemia, unspecified; Z98.84 Bariatric surgery status; Z86.718 Personal history of other venous thrombosis and embolism; Z98.61 Coronary angioplasty status; Z87.19 Personal history of other diseases of the digestive system; Z86.19 Personal history of other infectious and parasitic diseases; Z79.4 Long term (current) use of insulin; Z79.82 Long term (current) use of aspirin; Z79.899 Other long term (current) drug therapy; Z82.49 Family history of ischemic heart disease and other diseases of the circulatory system
CPT/HCPCS: 71045; 71275; 80048; 82550; 82553; 83605; 83880; 84484; 85025; 85610; 85730; 87040; 87486; 87581; 87633; 87798; 93005; 94760; 96374; 99285; J1815; Q9967

== ENCOUNTER 2024-01-22 07:21 | Day surgery (SDC) | payer MEDICARE, MEDICAID ==
[~2024-01-22] VITALS: Ht 177.8 cm; Wt 86.4 kg
[~2024-01-22 07:21] MED LIST changes: +ESOM40CA35 PO; -FEBU80TA PO; +FEBU80TA4 PO; +ROSU40TA81 PO; +SPOR1CAP PO
[2024-01-22] MEDS ORDERED: CLOP75TA99 PO (07:55)
[2024-01-22] MEDS ORDERED: propofoL 200 MG/20 ML VIAL As Ordered ONE (09:00)
[2024-01-22] MEDS ORDERED: LIDOCAINE 2% 100MG/5ML SDV (FOR ANES.) As Ordered ONE (09:09)
[2024-01-22] MEDS ORDERED: fentaNYL 100 MCG/2 ML INJECTION As Ordered ONE (09:10)
[2024-01-22] MEDS ORDERED: ONDANSETRON 4MG 2ML VIAL As Ordered ONE (09:12)
[2024-01-22] MEDS ORDERED: ePHEDrine SULFATE 25 MG/5 ML(5MG/ML) SYRINGE As Ordered ONE (09:16)
[2024-01-22] MEDS ORDERED: PHENYLephrine 500MCG 5ML (100MCG/ML) SYRINGE As Ordered ONE (09:27)
[2024-01-22] MEDS ORDERED: CALCIUM CHLORIDE 10% 1 GM/10 ML SYR As Ordered ONE (09:28)
[2024-01-22 10:14] VITALS: BP 100/57; O2SAT 100
== END 2024-01-22 10:14 | disposition home or self-care (01) ==
LOC: M OPP 07:21
PROVIDERS: ATTEND Internal Medicine Gastroenterology
DX: Z12.11 Encounter for screening for malignant neoplasm of colon (principal); Z12.12 Encounter for screening for malignant neoplasm of rectum; D12.0 Benign neoplasm of cecum; K22.70 Barrett's esophagus without dysplasia; K29.50 Unspecified chronic gastritis without bleeding; K21.00 Gastro-esophageal reflux disease with esophagitis, without bleeding; K64.8 Other hemorrhoids; K57.30 Diverticulosis of large intestine without perforation or abscess without bleeding; Z90.49 Acquired absence of other specified parts of digestive tract; Z98.84 Bariatric surgery status; T86.19 Other complication of kidney transplant; E11.22 Type 2 diabetes mellitus with diabetic chronic kidney disease; I12.0 Hypertensive chronic kidney disease with stage 5 chronic kidney disease or end stage renal disease; N18.6 End stage renal disease; J44.89 Other specified chronic obstructive pulmonary disease; I25.10 Atherosclerotic heart disease of native coronary artery without angina pectoris; I25.2 Old myocardial infarction; Z79.899 Other long term (current) drug therapy; Z79.4 Long term (current) use of insulin; M10.9 Gout, unspecified; Z95.1 Presence of aortocoronary bypass graft; Z86.711 Personal history of pulmonary embolism; Z94.0 Kidney transplant status; Z99.2 Dependence on renal dialysis; Y83.0 Surgical operation with transplant of whole organ as the cause of abnormal reaction of the patient, or of later complication, without mention of misadventure at the time of the procedure
CPT/HCPCS: 36415; 43239; 45380; 82330; 82947; 84132; 84295; 85014; 88305; J2371; J2405; J3010

== ENCOUNTER → 2024-05-20 | Outpatient (REF) | payer MEDICARE, MEDICAID ==
[~2024-05-20] MED LIST changes: +CLOP75TA99 PO; +GLIP-318 PO; -GLIP5TAB20 PO
== END ==
LOC: M SFHCDERM 17:20
PROVIDERS: ATTEND Physician Assistant
DX: L70.0 Acne vulgaris (principal)

== ENCOUNTER → 2024-07-20 | Outpatient (REF) | payer MEDICARE, MEDICAID | LOC: M LABWUC 15:16 | PROVIDERS: ATTEND Physician Assistant | DX: Z79.2 Long term (current) use of antibiotics (principal) ==

== ENCOUNTER → 2024-10-14 | Outpatient (REF) | payer MEDICARE, MEDICAID ==
[~2024-10-14] MED LIST changes: -PRAV10TA3 PO; +PRAV10TA43 PO; -PRAV20TA2 PO; +PRAV20TA78 PO
== END ==
LOC: M SFHCDERM 15:29
PROVIDERS: ATTEND Physician Assistant
DX: L70.0 Acne vulgaris (principal)

== ENCOUNTER → 2024-12-21 | Outpatient (REF) | payer MEDICAID, MEDICARE | LOC: M SFHCPLAZ 12:57 | PROVIDERS: ATTEND Internal Medicine Infectious Disease | DX: L02.222 Furuncle of back [any part, except buttock and flank] (principal) ==

== ENCOUNTER → 2024-12-23 | Outpatient (CLI) | payer MEDICARE ==
[2024-12-23 15:36] LABS: IMMUNOGLOBULIN E 13.5 IU/ML (0-378)
== END ==
LOC: M WUC 08:17
PROVIDERS: ATTEND Internal Medicine Infectious Disease
DX: B99.9 Unspecified infectious disease (principal); E78.2 Mixed hyperlipidemia; E11.9 Type 2 diabetes mellitus without complications; I10 Essential (primary) hypertension

== ENCOUNTER → 2024-12-23 | Outpatient (CLI) | payer MEDICARE ==
[2024-12-23 16:00] LABS: ESTIMATED AVERAGE GLUCOSE 143.0 MG/DL (60-110)
[2024-12-23 16:01] LABS: CHOLESTEROL LEVEL 123.0 MG/DL (<200); CHOLESTEROL RISK RATIO 3.23 (<5); LDL CHOLESTEROL 62.6 MG/DL (<100); MAGNESIUM LEVEL 2.3 MG/DL (1.8-2.4); NON-HDL-C 85.0 MG/DL; TRIGLYCERIDES LEVEL 112.0 MG/DL (<150)
[2024-12-23 16:04] LABS: FREE T4 1.13 NG/DL (0.89-1.76)
== END ==
LOC: M WUC 08:15
PROVIDERS: ATTEND Nurse Practitioner Family
DX: E78.2 Mixed hyperlipidemia (principal); E11.9 Type 2 diabetes mellitus without complications; I10 Essential (primary) hypertension; B99.9 Unspecified infectious disease

== ENCOUNTER → 2025-01-12 | Outpatient (REF) | payer MEDICARE | LOC: M LAB REF 14:14 | DX: N39.0 Urinary tract infection, site not specified (principal) ==

== ENCOUNTER → 2025-01-18 | Outpatient (REF) | payer MEDICARE ==
[2025-01-18 19:55] LABS: BACTERIA, URINE LARGE AMOUNT; HYALINE CAST, URINE NONE SEEN /lpf (0-1); RBC, URINE TNTC /hpf (0-3); SQUAMOUS EPITHELIAL CELL URINE NONE SEEN /hpf (SMALL AMT); WBC, URINE TNTC /hpf (0-3)
== END ==
LOC: M LAB REF 17:09
PROVIDERS: ATTEND Internal Medicine Nephrology
DX: N30.01 Acute cystitis with hematuria (principal); R30.0 Dysuria

== ENCOUNTER → 2025-01-24 | Outpatient (REF) | payer MEDICARE | LOC: M SFHCWAGY 14:53 | PROVIDERS: ATTEND Internal Medicine Infectious Disease | DX: L70.0 Acne vulgaris (principal) ==

== ENCOUNTER → 2025-02-01 | Outpatient (CLI) | payer MEDICARE ==
[2025-02-01 11:54] LABS: BASO # 0.1 10^3/uL (0.0-0.2); BASO % 0.9 % (0.0-1.0); EOS # 0.2 10^3/uL (0.0-0.5); EOS % 1.5 % (0.0-3.0); LYMPH # 2.3 10^3/uL (1.5-5.0); LYMPH % 22.2 % (24.0-44.0); MONO # 0.7 10^3/uL (0.0-0.8); MONO % 6.8 % (2.0-8.0); NEUTROPHILS # 6.7 10^3/uL (1.5-8.5); NEUTROPHILS % 66.1 % (36.0-66.0); PLATELET COUNT, AUTOMATED 162 10^3/uL (150-450)
[2025-02-01 12:19] LABS: LDH LACTATE DEHYDROGENASE 203 U/L (120-246)
[2025-02-01 12:20] LABS: ALT/SGPT 10 U/L (7.0-40); AST/SGOT < 8 U/L (<34); CALCIUM LEVEL 9.7 MG/DL (8.5-10.1); CARBON DIOXIDE LEVEL 30 MMOL/L (20-31); CHLORIDE LEVEL 94 MMOL/L (98-107); CREATININE FOR GFR 2.85 MG/DL (0.70-1.30); GLOMERULAR FILTRATION RATE 26.4 (>60); IRON (FE) 95 UG/DL (65-175); PERCENT SATURATION 27.1 % (19.7-50.0); POTASSIUM SERUM 3.5 MMOL/L (3.5-5.1); SODIUM LEVEL 137 MMOL/L (136-145)
[2025-02-01 13:43] LABS: VITAMIN B12 LEVEL 1392 PG/ML (211-911)
== END ==
LOC: M LAB 10:53 → M WUC 10:53
PROVIDERS: ATTEND Internal Medicine Hematology & Oncology
DX: N18.6 End stage renal disease (principal); Z79.01 Long term (current) use of anticoagulants; Z86.19 Personal history of other infectious and parasitic diseases; D69.6 Thrombocytopenia, unspecified

== ENCOUNTER → 2025-02-22 | Outpatient (REF) | payer MEDICARE | LOC: M SFHCDERM 13:24 | PROVIDERS: ATTEND Physician Assistant | DX: L02.92 Furuncle, unspecified (principal) ==